=== PATIENT | female | born 1990 | race American Indian/Alaskan Native ===

== ENCOUNTER 2016-09-13 15:45 | Emergency (ER) | payer MEDICAID ==
--- NOTE | 2016-09-13 17:30 | Emergency Department Report ---
Chief Complaint: Abdominal Pain Stated Complaint: ABD/LOWER BACK PAIN Time Seen by Provider: 09/13/16 17:25 - HPI History of Present Illness: Patient is a 26-year-old female presents to ED complaining of lower mid pelvic pain and lower back pain 2 weeks. Patient's issues as low pelvic cramping for the past 2 weeks for by lower back abdominal pain patient describes pain as throbbing in nature and rates the pain about a 9 out of 10 intensity patient also states it is ago she noticed whitish cloudy vaginal discharge with a mild odor but no vaginal bleeding. Patient denies fevers/chills/vomiting/dysuria/chest pains or shortness of breath. - ROS Review of Systems: As noted in HPI - Exam Vital Signs: Vital Signs 09/13/16 16:38 Temperature 98.5 F Pulse Rate 75 Blood Pressure 125/74 O2 Sat by Pulse 99 Oximetry Physical Exam: GENERAL: Alert and oriented x3, no apparent distress, Normal Gait, atraumatic. HEAD: Head is normocephalic and a-traumatic. EYES: Extra ocular muscles are intact. Pupils are equal, round, and reactive to light and accommodation. NECK: Supple. Non edematous, No carotid bruits. No lymphadenopathy or thyromegaly. LUNGS: Symetrical with respiration, No wheezing, no rales or crackles, CTAB. HEART: S1, S2 present, regular rate and rhythm without murmur, no rubs, no gallops. ABDOMEN: No organomegaly was noted,Positive bowel sounds, soft, and non- distended. . Nontender to palpation on all Quadrants, NO CVA tenderness. Mild tenderness to mid pelvis region. SKIN: Warm and dry, No lesions, No ulceration or induration present. MSE screening note: Focused history and physical exam performed. Due to findings the following was ordered: ED Medical Decision Making - Medical Decision Making Urinalyses and test ordered. Vital signs stable patient is in no acute or respiratory distress. Patient condition is seen over at [facility]. ED Disposition for MSE Condition: Stable Instructions: Abdominal Pain (ED)
[2016-09-13 18:37] LABS: Bacteria,Urine 1+ /HPF (Negative); Bilirubin,Urine NEG (Negative); Blood,Urine NEG (Negative); Ketones,Urine NEG (Negative); Leukocyte Esterase,Urine SM (Negative); Mucus,Urine 1+ /HPF; Nitrite,Urine NEG (Negative); Protein,Urine <15 mg/dL mg/dL (Negative); Urobilinogen,Urine < 2.0 mg/dL (<2.0)
--- NOTE | 2016-09-13 23:45 | Emergency Department Report ---
ED Female HPI - General Chief complaint: Abdominal Pain Stated complaint: ABD/LOWER BACK PAIN Time Seen by Provider: 09/13/16 22:49 Source: patient Mode of arrival: Ambulatory Limitations: No Limitations - History of Present Illness Initial comments: 26 y/o female complain of white discharge with foul odor noted MD Complaint: vaginal discharge, dysuria Onset/Timin -: week(s) Radiation: other (low back ) Severity: mild Severity scale (0 -10): 5 Quality: aching Consistency: constant Improves with: none Worsens with: none Associated Symptoms: abdominal pain - Related Data Sexually active: Yes Previous Rx's Medication Instructions Recorded Last Taken Type Omeprazole [PriLOSEC] 20 mg PO BID #40 cap 05/10/13 05/19/13 Rx Sulfamethoxazole/Trimethoprim 1 each PO BID #20 tablet 05/10/13 05/19/13 Rx [Bactrim DS] Promethazine [Phenergan] 1 tab PO Q6H PRN #20 tablet 05/21/13 Unknown Rx Ibuprofen [Motrin] 800 mg PO Q8HR PRN #15 tablet 09/13/16 Unknown Rx metroNIDAZOLE [Flagyl] 500 mg PO Q12HR #14 tab 09/13/16 Unknown Rx Allergies Allergy/AdvReac Type Severity Reaction Status Date / Time strawberry [[place]] Allergy Itching Verified 05/21/13 00:00 ED Review of Systems ROS: Stated complaint: ABD/LOWER BACK PAIN Other details as noted in HPI Constitutional: denies: chills, fever Eyes: denies: eye pain, eye discharge, vision change ENT: denies: ear pain, throat pain Respiratory: denies: cough, shortness of breath, wheezing Cardiovascular: denies: chest pain, palpitations Endocrine: no symptoms reported Gastrointestinal: denies: abdominal pain, nausea, diarrhea Genitourinary: discharge. denies: urgency, dysuria Musculoskeletal: denies: back pain, joint swelling, arthralgia Skin: denies: rash, lesions Neurological: denies: headache, weakness, paresthesias Psychiatric: denies: anxiety, depression Hematological/Lymphatic: denies: easy bleeding, easy bruising ED Past Medical Hx - Past Medical History Hx Asthma: No Additional medical history: reflus - Surgical History Additional Surgical History: facial surgery/childhood - Social History Smoking Status: Unknown if ever smoked - Medications Home Medications: Home Medications Medication Instructions Recorded Confirmed Last Taken Type Omeprazole [PriLOSEC] 20 mg PO BID #40 cap 05/10/13 05/19/13 Rx Sulfamethoxazole/Trimethoprim 1 each PO BID #20 tablet 05/10/13 05/19/13 Rx [Bactrim DS] Promethazine [Phenergan] 1 tab PO Q6H PRN #20 tablet 05/21/13 Unknown Rx Ibuprofen [Motrin] 800 mg PO Q8HR PRN #15 tablet 09/13/16 Unknown Rx metroNIDAZOLE [Flagyl] 500 mg PO Q12HR #14 tab 09/13/16 Unknown Rx ED Physical Exam - General Limitations: No Limitations General appearance: alert, in no apparent distress - Head Head exam: Present: atraumatic, normocephalic - Eye Eye exam: Present: normal appearance - ENT ENT exam: Present: mucous membranes moist - Neck Neck exam: Present: normal inspection - Respiratory Respiratory exam: Present: normal lung sounds bilaterally. Absent: respiratory distress - Cardiovascular Cardiovascular Exam: Present: regular rate, normal rhythm. Absent: systolic murmur, diastolic murmur, rubs, gallop - GI/Abdominal GI/Abdominal exam: Present: soft, normal bowel sounds - External exam: Present: normal external exam Speculum exam: Present: vaginal discharge, cervical discharge, other (foul fishy odor) Bi-manual exam: Present: normal bi-manual exam - Extremities Exam Extremities exam: Present: normal inspection - Back Exam Back exam: Present: normal inspection - Neurological Exam Neurological exam: Present: alert, oriented X3 - Psychiatric Psychiatric exam: Present: normal affect, normal mood - Skin Skin exam: Present: warm, dry, intact, normal color. Absent: rash ED Course Vital Signs 09/13/16 09/13/16 16:38 21:32 Temperature 98.5 F Pulse Rate 75 Respiratory 20 Rate Blood Pressure 125/74 O2 Sat by Pulse 99 99 Oximetry ED Medical Decision Making - Medical Decision Making Bacterial vaginosis per exam empiric treatment Critical care attestation.: If time is entered above; I have spent that time in minutes in the direct care of this critically ill patient, excluding procedure time. ED Disposition Clinical Impression: Bacterial vaginosis Disposition: DISCHARGED TO HOME OR SELFCARE Is pt being admited?: No Does the pt Need Aspirin: No Condition: Stable Instructions: Abdominal Pain (ED), Bacterial Vaginosis (ED) Prescriptions: metroNIDAZOLE [Flagyl] 500 mg PO Q12HR #14 tab Ibuprofen [Motrin] 800 mg PO Q8HR PRN #15 tablet PRN Reason: Pain Referrals: PRIMARY CARE, [Primary Care Provider] - 3-5 Days [facility] [Outside] - 3-5 Days Forms: STI Treatment and Prevention, Work/School Release Form(ED) Time of Disposition: 23:57
[2016-09-13] MEDS ORDERED: TORADOL IM ONE (23:51)
[2016-09-14 00:02] VITALS: BP 128/72
== END 2016-09-14 00:19 | disposition home or self-care (01) ==
LOC: ED 15:45
DX: N76.0 Acute vaginitis (principal); B96.89 Other specified bacterial agents as the cause of diseases classified elsewhere; Z91.018 Allergy to other foods
CPT/HCPCS: 36415; 81001; 81025; 84703; 87210; 87591; 96372; 99284; J1885

== ENCOUNTER 2017-04-15 19:57 | Emergency (ER) | payer MEDICAID, OTHER ==
[2017-04-15] MEDS ORDERED: TYLENOL PO ONE (20:26)
[2017-04-15] MEDS ORDERED: TYLENOL ONE (20:31)
[2017-04-15 21:04] LABS: Basophils % (Auto) 0.5 % (0.0-1.8); Eosinophils % (Auto) 0.1 % (0.0-4.3); Hematocrit 39.4 % (30.3-42.9); Hemoglobin 12.7 gm/dl (10.1-14.3); Mean Corpuscular HGB Conc 32 % (30-34); Mean Corpuscular Hemoglobin 27 pg (28-32); Mean Corpuscular Volume 83 fl (79-97); Platelet Count 301 K/mm3 (140-440); Red Blood Count 4.73 M/mm3 (3.65-5.03); Red Cell Distribution Width 13.4 % (13.2-15.2); White Blood Count 9.7 K/mm3 (4.5-11.0)
[2017-04-15 21:10] LABS: Alanine Aminotransferase 16 units/L (7-56); Albumin 4.2 g/dL (3.9-5); Alkaline Phosphatase 73 units/L (35-129); Anion Gap 19 mmol/L; BUN/Creatinine Ratio 15.71; Blood Urea Nitrogen 11 mg/dL (7-17); Calcium 9.2 mg/dL (8.4-10.2); Carbon Dioxide 24 mmol/L (22-30); Chloride 97.4 mmol/L (98-107); Glucose 122 mg/dL (65-100); Potassium 3.9 mmol/L (3.6-5.0); Sodium 136 mmol/L (137-145); Total Protein 8.3 g/dL (6.3-8.2)
[2017-04-15 21:46] LABS: Bacteria,Urine 1+ /HPF (Negative); Bilirubin,Urine NEG (Negative); Blood,Urine LG (Negative); Ketones,Urine NEG (Negative); Leukocyte Esterase,Urine TR (Negative); Mucus,Urine FEW /HPF; Nitrite,Urine NEG (Negative); Protein,Urine <15 mg/dL mg/dL (Negative)
[2017-04-16] MEDS ORDERED: NACL 0.9% 1000 ML 1,000 ML IV ONE (01:54)
[2017-04-16] MEDS ORDERED: TORADOL IV ONE (01:54)
[2017-04-16] MEDS ORDERED: ZOFRAN IV ONE (01:54)
[2017-04-16] MEDS ORDERED: MORPHINE IV ONE (01:54)
[2017-04-16] MEDS ORDERED: NACL ONE (02:18)
--- NOTE | 2017-04-16 03:02 | Emergency Department Report ---
ED Abdominal Pain HPI - General Chief Complaint: Abdominal Pain Stated Complaint: FLANK PAIN Time Seen by Provider: 04/16/17 01:44 Source: patient Mode of arrival: Ambulatory Limitations: No Limitations - History of Present Illness Initial Comments: 27-year-old female with a past medical history of recurrent pyelonephritis and GERD presents to the hospital with continued bilateral flank pain and vomiting after Levaquin intake. The last 2 months patient has had 3 visits approximately every 2 weeks to her primary care doctor. Patient has been repeatedly diagnose upon nephritis and has tried different antibiotics unsuccessfully. She states she has culture results as well. Patient had a positive UTI test yesterday and was started on Levaquin. Patient took 1 dose yesterday and 1 dose today and vomited each time. No further vomiting episodes reported. Patient able to tolerate water. Potassium is decreased and patient has not eaten since yesterday. She continues to have bilateral flank pain and abdominal pain. No reports of fever or patient states she has chronic intermittent frequency and dysuria started today. She is currently on her menstrual cycle. Severity scale (0 -10): 8 - Related Data Previous Rx's Medication Instructions Recorded Last Taken Type Omeprazole [PriLOSEC] 20 mg PO BID #40 cap 05/10/13 05/19/13 Rx Sulfamethoxazole/Trimethoprim 1 each PO BID #20 tablet 05/10/13 05/19/13 Rx [Bactrim DS] Promethazine [Phenergan] 1 tab PO Q6H PRN #20 tablet 05/21/13 Unknown Rx Ibuprofen [Motrin] 800 mg PO Q8HR PRN #15 tablet 09/13/16 Unknown Rx metroNIDAZOLE [Flagyl] 500 mg PO Q12HR #14 tab 09/13/16 Unknown Rx Ibuprofen [Motrin] 800 mg PO Q8HR PRN #30 tablet 04/16/17 Unknown Rx Nitrofurantoin Waldo/M-Cryst 100 mg PO Q12HR #14 capsule 04/16/17 Unknown Rx [Macrobid CAP] Ondansetron [Zofran Odt] 4 mg PO Q8HR PRN #20 tab.rapdis 04/16/17 Unknown Rx traMADol [Ultram 50 MG tab] 50 mg PO Q6HR PRN #20 tablet 04/16/17 Unknown Rx Allergies Allergy/AdvReac Type Severity Reaction Status Date / Time strawberry [[place]] Allergy Itching Verified 05/21/13 00:00 ED Review of Systems ROS: Stated complaint: FLANK PAIN Other details as noted in HPI Comment: All other systems reviewed and negative Other: Constitutional: No fevers chills Eyes: No eye pain visual changes ENT: No ear pain or throat pain Neck: Denies pain Respiratory: Denies cough wheezing shortness of breath Cardiovascular: Denies chest pain, palpitations, syncope GI: As per HPI : As per HPI Musculoskeletal: As per HPI Skin: Denies rash, lesions, erythema Neurologic: Denies headache, numbness, weakness Psychiatric: Denies suicidal ideation, hallucinations ED Past Medical Hx - Past Medical History Previous Medical History?: Yes Hx Renal Disease: Yes (POLYNEPHRITIS) Hx Asthma: No Additional medical history: reflus - Surgical History Past Surgical History?: Yes Additional Surgical History: facial surgery/childhood - Social History Smoking Status: Current Every Day Smoker Substance Use Type: Alcohol - Medications Home Medications: Home Medications Medication Instructions Recorded Confirmed Last Taken Type Omeprazole [PriLOSEC] 20 mg PO BID #40 cap 05/10/13 05/19/13 Rx Sulfamethoxazole/Trimethoprim 1 each PO BID #20 tablet 05/10/13 05/19/13 Rx [Bactrim DS] Promethazine [Phenergan] 1 tab PO Q6H PRN #20 tablet 05/21/13 Unknown Rx Ibuprofen [Motrin] 800 mg PO Q8HR PRN #15 tablet 09/13/16 Unknown Rx metroNIDAZOLE [Flagyl] 500 mg PO Q12HR #14 tab 09/13/16 Unknown Rx Ibuprofen [Motrin] 800 mg PO Q8HR PRN #30 tablet 04/16/17 Unknown Rx Nitrofurantoin Waldo/M-Cryst 100 mg PO Q12HR #14 capsule 04/16/17 Unknown Rx [Macrobid CAP] Ondansetron [Zofran Odt] 4 mg PO Q8HR PRN #20 tab.rapdis 04/16/17 Unknown Rx traMADol [Ultram 50 MG tab] 50 mg PO Q6HR PRN #20 tablet 04/16/17 Unknown Rx ED Physical Exam - General Limitations: No Limitations - Other Other exam information: General: No limitations, patient is alert in no acute distress Head exam: Atraumatic, normocephalic Eyes exam: Normal appearance, pupils equal reactive to light, extraocular movements intact ENT: Moist mucous membrane, normal oropharynx Neck exam: Normal inspection, full range of motion, no meningismus nontender Respiratory exam: Clear to auscultation bilateral, no wheezes, rales, crackles Cardiovascular: Normal rate and rhythm, normal heart sounds Abdomen: Soft, nondistended, generalized abdominal tenderness, with normal bowel sounds, no rebound, or guarding Extremity: Full range of motion normal inspection no deformity Back: Normal Inspection, full range of motion, bilateral CVA tenderness Neurologic: Alert, oriented x3, cranial nerves intact, no motor or sensory deficit Psychiatric: normal affect, normal mood Skin: Warm, dry, intact ED Course Vital Signs 04/15/17 04/15/17 04/16/17 20:20 21:28 02:51 Temperature 98.8 F Pulse Rate 78 Respiratory 20 18 18 Rate Blood Pressure 134/91 Blood Pressure [Left] O2 Sat by Pulse 100 100 Oximetry 04/16/17 04/16/17 03:08 03:10 Temperature Pulse Rate 71 Respiratory 18 14 Rate Blood Pressure Blood Pressure 126/66 [Left] O2 Sat by Pulse 99 Oximetry - Reevaluation(s) Reevaluation #1: 04/16/17 03:01 Patient medicated with IV fluids, nausea medication and pain medication. CT pending ED Medical Decision Making - Lab Data Result diagrams: 04/15/17 20:32 04/15/17 20:32 Lab Results 04/15/17 04/15/17 04/15/17 Range/Units 20:32 20:32 20:32 WBC 9.7 (4.5-11.0) K/mm3 RBC 4.73 (3.65-5.03) M/mm3 Hgb 12.7 (10.1-14.3) gm/dl Hct 39.4 (30.3-42.9) % MCV 83 (79-97) fl MCH 27 L (28-32) pg MCHC 32 (30-34) % RDW 13.4 (13.2-15.2) % Plt Count 301 (140-440) K/mm3 Lymph % (Auto) 15.3 (13.4-35.0) % Waldo % (Auto) 6.8 (0.0-7.3) % Eos % (Auto) 0.1 (0.0-4.3) % Baso % (Auto) 0.5 (0.0-1.8) % Lymph # 1.5 (1.2-5.4) K/mm3 Waldo # 0.7 (0.0-0.8) K/mm3 Eos # 0.0 (0.0-0.4) K/mm3 Baso # 0.0 (0.0-0.1) K/mm3 Seg Neutrophils % 77.3 H (40.0-70.0) % Seg Neutrophils # 7.5 (1.8-7.7) K/mm3 Sodium 136 L (137-145) mmol/L Potassium 3.9 (3.6-5.0) mmol/L Chloride 97.4 L (98-107) mmol/L Carbon Dioxide 24 (22-30) mmol/L Anion Gap 19 mmol/L BUN 11 (7-17) mg/dL Creatinine 0.7 (0.7-1.2) mg/dL Estimated GFR > 60 ml/min BUN/Creatinine Ratio 15.71 % Glucose 122 H (65-100) mg/dL Calcium 9.2 (8.4-10.2) mg/dL Total Bilirubin 0.30 (0.1-1.2) mg/dL AST 18 (5-40) units/L ALT 16 (7-56) units/L Alkaline Phosphatase 73 (35-129) units/L Total Protein 8.3 H (6.3-8.2) g/dL Albumin 4.2 (3.9-5) g/dL Albumin/Globulin Ratio 1.0 % HCG, Qual Negative (Negative) Urine Color (Yellow) Urine Turbidity (Clear) Urine pH (5.0-7.0) Ur Specific Liberty (1.003-1.030) Urine Protein (Negative) mg/dL Urine Glucose (UA) (Negative) mg/dL Urine Ketones (Negative) mg/dL Urine Blood (Negative) Urine Nitrite (Negative) Urine Bilirubin (Negative) Urine Urobilinogen (<2.0) mg/dL Ur Leukocyte Esterase (Negative) Urine WBC (Auto) (0.0-6.0) /HPF Urine RBC (Auto) (0.0-6.0) /HPF U Epithel Cells (Auto) (0-13.0) /HPF Urine Bacteria (Auto) (Negative) /HPF Urine Mucus /HPF 04/15/17 Range/Units 21:20 WBC (4.5-11.0) K/mm3 RBC (3.65-5.03) M/mm3 Hgb (10.1-14.3) gm/dl Hct (30.3-42.9) % MCV (79-97) fl MCH (28-32) pg MCHC (30-34) % RDW (13.2-15.2) % Plt Count (140-440) K/mm3 Lymph % (Auto) (13.4-35.0) % Waldo % (Auto) (0.0-7.3) % Eos % (Auto) (0.0-4.3) % Baso % (Auto) (0.0-1.8) % Lymph # (1.2-5.4) K/mm3 Waldo # (0.0-0.8) K/mm3 Eos # (0.0-0.4) K/mm3 Baso # (0.0-0.1) K/mm3 Seg Neutrophils % (40.0-70.0) % Seg Neutrophils # (1.8-7.7) K/mm3 Sodium (137-145) mmol/L Potassium (3.6-5.0) mmol/L Chloride (98-107) mmol/L Carbon Dioxide (22-30) mmol/L Anion Gap mmol/L BUN (7-17) mg/dL Creatinine (0.7-1.2) mg/dL Estimated GFR ml/min BUN/Creatinine Ratio % Glucose (65-100) mg/dL Calcium (8.4-10.2) mg/dL Total Bilirubin (0.1-1.2) mg/dL AST (5-40) units/L ALT (7-56) units/L Alkaline Phosphatase (35-129) units/L Total Protein (6.3-8.2) g/dL Albumin (3.9-5) g/dL Albumin/Globulin Ratio % HCG, Qual (Negative) Urine Color Yellow (Yellow) Urine Turbidity Clear (Clear) Urine pH 7.0 (5.0-7.0) Ur Specific Liberty 1.014 (1.003-1.030) Urine Protein <15 mg/dl (Negative) mg/dL Urine Glucose (UA) Neg (Negative) mg/dL Urine Ketones Neg (Negative) mg/dL Urine Blood Lg (Negative) Urine Nitrite Neg (Negative) Urine Bilirubin Neg (Negative) Urine Urobilinogen 2.0 (<2.0) mg/dL Ur Leukocyte Esterase Tr (Negative) Urine WBC (Auto) 3.0 (0.0-6.0) /HPF Urine RBC (Auto) 127.0 (0.0-6.0) /HPF U Epithel Cells (Auto) 2.0 (0-13.0) /HPF Urine Bacteria (Auto) 1+ (Negative) /HPF Urine Mucus Few /HPF - Radiology Data Radiology results: report reviewed CT abdomen and pelvis IV contrast only: Irregularity of the left kidney suggesting scarring from prior pyelonephritis. No specific evidence of acute pyelonephritis. Right kidney is unremarkable. IUD in the uterus. Exophytic mass arising from the left side of the uterus measuring 9.3 x 5.2 cm. This could be a subserosal fibroid. Possibility of a left ovarian tumor is not excluded. Ultrasound MRI may be helpful. No ascites, free air, abscesses, or adenopathy. transvaginal/pelvic ultrasound: Complex uterine mass arising from the left side of uterine body measuring 8.4 x 6.6 x 5.6 cm. Most likely a subserosal uterine fibroid. Left ovary is not seen - Medical Decision Making I informed patient that ED workup was unremarkable other than finding a uterine fibroid which patient allergy is aware of. Any signs of acute UTI at this time. Patient's hematuria likely secondary to menses. She states her urine was positive for infection yesterday but she cannot tolerate the Levaquin. I informed her I would prescribe Macrobid and to call her primary care doctor's office to verify that her urine results were positive and she needs to take the medication. No CT evidence of acute pyelonephritis. Medications will be prescribed for pain and nausea. She will be provided a copy of her results to take to her M.D. - Differential Diagnosis appendicitis, diverticulitis, UTI, renal colic, PID, cholecystitis Critical Care Time: No Critical care attestation.: If time is entered above; I have spent that time in minutes in the direct care of this critically ill patient, excluding procedure time. ED Disposition Clinical Impression: Bilateral flank pain, Abdominal pain, Uterine fibroid, Onset of menses, History of recurrent UTI (urinary tract infection) Disposition: TO HOME OR SELFCARE Is pt being admited?: No Does the pt Need Aspirin: No Condition: Stable Instructions: Abdominal Pain (ED), Flank Pain (ED), Uterine Fibroids (ED) Additional Instructions: Take the medications as prescribed. Return if symptoms worsen. Follow-up with your doctor. Call the doctor's office to determine if they want to continue antibiotics since our results did not show significant infection. You have been prescribed Macrobid since you cannot tolerate the Levaquin. Take a copy of the results to your for further evaluation Prescriptions: Ibuprofen [Motrin] 800 mg PO Q8HR PRN #30 tablet PRN Reason: Pain Nitrofurantoin Waldo/M-Cryst [Macrobid CAP] 100 mg PO Q12HR #14 capsule Ondansetron [Zofran Odt] 4 mg PO Q8HR PRN #20 tab.rapdis PRN Reason: Nausea And Vomiting traMADol [Ultram 50 MG tab] 50 mg PO Q6HR PRN #20 tablet PRN Reason: Pain Referrals: ARGELIA CALDERA III, [facility] [Primary Care Provider] - 3-5 Days Time of Disposition: 06:27
--- NOTE | 2017-04-16 03:53 | Cat Scan Report ---
FINAL REPORT PROCEDURE: CT ABDOMEN PELVIS W CON TECHNIQUE: Computerized axial tomography of the abdomen and pelvis was performed after the IV injection of iodinated nonionic contrast. HISTORY: recent pyelo, b/l flank pain, diffuse abd pain PYLEO PREV RT KIDNEY COMPARISON: No prior studies are available for comparison. FINDINGS: Visualized lower thorax: No significant abnormality. Liver: Normal size and attenuation. Spleen: Normal size and attenuation. Gallbladder and biliary system: Normal. Pancreas: Normal. Adrenals: Normal. Kidneys: There is irregularity of the left kidney suggesting scarring from prior pyelonephritis. There is no specific evidence of acute pyelonephritis. The right kidney is unremarkable.. GI tract: There is no bowel obstruction, colitis or enteritis. The appendix is normal.. Lymph nodes and mesentery: Normal. Vasculature: Normal. Bladder: Normal. Reproductive organs: There is an IUD in the uterus. There is an exophytic mass arising from the left side of the uterus measuring 9.3 x 5.2 centimeters. This could be a sub serosal fibroid. Possibility of left ovarian tumor not excluded. Ultrasound or MRI may be helpful.. Peritoneum: There is no ascites, free air, abscess or adenopathy.. Musculoskeletal structures: No significant abnormality. Other: None. IMPRESSION: There is irregularity of the left kidney suggesting scarring from prior pyelonephritis. There is no specific evidence of acute pyelonephritis. The right kidney is unremarkable.. There is no bowel obstruction, colitis or enteritis. The appendix is normal.. There is an IUD in the uterus. There is an exophytic mass arising from the left side of the uterus measuring 9.3 x 5.2 centimeters. This could be a sub serosal fibroid. Possibility of left ovarian tumor not excluded. Ultrasound or MRI may be helpful.. There is no ascites, free air, abscess or adenopathy..
--- NOTE | 2017-04-16 06:03 | Ultrasound Report ---
FINAL REPORT PROCEDURE: US TRANSVAGINAL TECHNIQUE: Real-time transvaginal sonography in multiple planes of the pelvis was performed with image documentation. This examination was performed without Doppler. Vascular abnormalities, including ovarian torsion, will not be detectable without Doppler evaluation. CPT 18454 HISTORY: abd pain , left exophytic mass COMPARISON: 04/16/2017 FINDINGS: UTERUS Size: 9.9 x 5.2 x 9.7 cm. Endometrial thickness: 9.3 mm. There is an IUD. Orientation: anteverted. Cervix: Normal. Fibroids/masses: There is a complex uterine mass arising from the left side of the uterine body measuring 8.4 x 6.6 x 5.6 centimeters.. RIGHT Ovary: 2.1 x 1.5 x 1.8 cm. Appearance: Normal. LEFT Ovary: Not seen. Pelvic fluid: None. Other: None. IMPRESSION: There is a complex uterine mass arising from the left side of the uterine body measuring 8.4 x 6.6 x 5.6 centimeters.. This is most likely a sub serosal uterine fibroid. The left ovary is not seen..
--- NOTE | 2017-04-16 06:05 | Ultrasound Report ---
FINAL REPORT PROCEDURE: US PELVIC COMPLETE TECHNIQUE: Real-time transabdominal sonography in multiple planes of the pelvis was performed with image documentation. This examination was performed without Doppler. Vascular abnormalities, including ovarian torsion, will not be detectable without Doppler evaluation. HISTORY: abd pain , left exophytic mass COMPARISON: 04/16/2017 FINDINGS: UTERUS Size: 9.9 x 5.2 x 9.7 cm. Endometrial thickness: 9.3 mm. There is an IUD. Orientation: anteverted. Cervix: Normal. Fibroids/masses: There is a complex uterine mass arising from the left side of the uterine body measuring 8.4 x 6.6 x 5.6 centimeters.. RIGHT Ovary: 2.1 x 1.5 x 1.8 cm. Appearance: Normal. LEFT Ovary: Not seen. Pelvic fluid: None. Other: None. IMPRESSION: There is a complex uterine mass arising from the left side of the uterine body measuring 8.4 x 6.6 x 5.6 centimeters.. This is most likely a sub serosal uterine fibroid. The left ovary is not seen..
[2017-04-16 06:48] VITALS: BP 116/71
== END 2017-04-16 06:57 | disposition home or self-care (01) ==
LOC: ED 19:57
DX: D25.9 Leiomyoma of uterus, unspecified (principal); R10.9 Unspecified abdominal pain; F17.200 Nicotine dependence, unspecified, uncomplicated; Z91.018 Allergy to other foods
CPT/HCPCS: 36415; 74177; 76830; 76856; 80053; 81001; 84703; 85025; 96361; 96374; 96375; 99284; J1885; J2270; J2405; J7030; Q9967

== ENCOUNTER 2017-09-15 10:24 | Emergency (ER) | payer OTHER ==
[2017-09-15 12:24] LABS: Bacteria,Urine 1+ /HPF (Negative); Bilirubin,Urine NEG (Negative); Blood,Urine NEG (Negative); Color,Urine Yellow (Yellow); Mucus,Urine FEW /HPF; Nitrite,Urine NEG (Negative); Protein,Urine <15 mg/dL mg/dL (Negative); Urobilinogen,Urine < 2.0 mg/dL (<2.0)
[2017-09-15 12:26] LABS: HCG Qualitative,Urine Negative (Negative)
--- NOTE | 2017-09-15 15:31 | Emergency Department Report ---
ED Female HPI - General Chief complaint: Urogenital-Female Stated complaint: UTI Time Seen by Provider: 09/15/17 15:30 Source: patient Mode of arrival: Ambulatory Limitations: No Limitations - History of Present Illness Initial comments: Patient reports that she is here for possibly UTI. She says she is having pain to both her flank. She says she has urinary burning and frequency. Denies any blood in her urine. Denies any nausea or vomiting. Denies any fever or chills. Patient says she has recurrent urinary tract infection. She said the last time she had a urinary tract infection was 03/27/2017 and this is documented in her record. She was also hospitalized previously for pyelonephritis. She denies any history of kidney stones. Pain is 4 out of 10. No [id number] medication taken. MD Complaint: dysuria Onset/Timin -: days(s) Location: other (back and flank) Radiation: non-radiating Severity: mild Severity scale (0 -10): 4 Quality: sharp, aching Worsens with: urination Are you Now?: No Associated Symptoms: dysuria. denies: vaginal discharge, vaginal bleeding, abdominal pain, nausea/vomiting, fever/chills, headaches, loss of appetite, hematuria, rash, seizure, shortness of breath, syncope, weakness - Related Data Sexually active: Yes Previous Rx's Medication Instructions Recorded Last Taken Type Omeprazole [PriLOSEC] 20 mg PO BID #40 cap 05/10/13 05/19/13 Rx Sulfamethoxazole/Trimethoprim 1 each PO BID #20 tablet 05/10/13 05/19/13 Rx [Bactrim DS] Promethazine [Phenergan] 1 tab PO Q6H PRN #20 tablet 05/21/13 Unknown Rx metroNIDAZOLE [Flagyl] 500 mg PO Q12HR #14 tab 09/13/16 Unknown Rx Ibuprofen [Motrin] 800 mg PO Q8HR PRN #30 tablet 04/16/17 Unknown Rx Nitrofurantoin [place]/M-Cryst 100 mg PO Q12HR #14 capsule 04/16/17 Unknown Rx [Macrobid CAP] Ondansetron [Zofran Odt] 4 mg PO Q8HR PRN #20 tab.rapdis 04/16/17 Unknown Rx traMADol [Ultram 50 MG tab] 50 mg PO Q6HR PRN #20 tablet 04/16/17 Unknown Rx Ibuprofen [Motrin 800 MG tab] 800 mg PO Q8HR PRN #12 tablet 09/15/17 Unknown Rx Levofloxacin [Levaquin] 750 mg PO QDAY 7 Days #7 tablet 09/15/17 Unknown Rx Allergies Allergy/AdvReac Type Severity Reaction Status Date / Time strawberry [[place]] Allergy Itching Verified 05/21/13 00:00 ED Review of Systems ROS: Stated complaint: UTI Other details as noted in HPI Comment: All other systems reviewed and negative Constitutional: no symptoms reported Respiratory: no symptoms reported Cardiovascular: denies: chest pain, palpitations, dyspnea on exertion, edema, syncope, paroxysmal nocturnal dyspnea Gastrointestinal: denies: abdominal pain, nausea, vomiting, diarrhea, constipation, hematemesis, melena, hematochezia Genitourinary: dysuria, frequency. denies: urgency, hematuria, discharge Musculoskeletal: back pain. denies: joint swelling, arthralgia, myalgia Skin: denies: rash Neurological: denies: headache ED Past Medical Hx - Past Medical History Previous Medical History?: Yes Hx Renal Disease: Yes (POLYNEPHRITIS) Hx Asthma: No Additional medical history: reflus, Frequent UTI - Surgical History Past Surgical History?: Yes Additional Surgical History: facial surgery/childhood - Family History Family history: hypertension - Social History Smoking Status: Current Every Day Smoker Substance Use Type: Alcohol, Marijuana, Prescribed - Medications Home Medications: Home Medications Medication Instructions Recorded Confirmed Last Taken Type Omeprazole [PriLOSEC] 20 mg PO BID #40 cap 05/10/13 05/19/13 Rx Sulfamethoxazole/Trimethoprim 1 each PO BID #20 tablet 05/10/13 05/19/13 Rx [Bactrim DS] Promethazine [Phenergan] 1 tab PO Q6H PRN #20 tablet 05/21/13 Unknown Rx metroNIDAZOLE [Flagyl] 500 mg PO Q12HR #14 tab 09/13/16 Unknown Rx Ibuprofen [Motrin] 800 mg PO Q8HR PRN #30 tablet 04/16/17 Unknown Rx Nitrofurantoin [place]/M-Cryst 100 mg PO Q12HR #14 capsule 04/16/17 Unknown Rx [Macrobid CAP] Ondansetron [Zofran Odt] 4 mg PO Q8HR PRN #20 tab.rapdis 04/16/17 Unknown Rx traMADol [Ultram 50 MG tab] 50 mg PO Q6HR PRN #20 tablet 04/16/17 Unknown Rx Ibuprofen [Motrin 800 MG tab] 800 mg PO Q8HR PRN #12 tablet 09/15/17 Unknown Rx Levofloxacin [Levaquin] 750 mg PO QDAY 7 Days #7 tablet 09/15/17 Unknown Rx ED Physical Exam - General Limitations: No Limitations General appearance: alert, in no apparent distress - Head Head exam: Present: atraumatic, normocephalic, normal inspection - Eye Eye exam: Present: normal appearance, PERRL, EOMI Pupils: Present: normal accommodation - ENT ENT exam: Present: normal exam, normal orophraynx, mucous membranes moist - Neck Neck exam: Present: normal inspection, full ROM. Absent: tenderness, meningismus, lymphadenopathy, thyromegaly - Respiratory Respiratory exam: Present: normal lung sounds bilaterally. Absent: respiratory distress, chest wall tenderness - Cardiovascular Cardiovascular Exam: Present: regular rate, normal rhythm, normal heart sounds. Absent: systolic murmur, diastolic murmur - GI/Abdominal GI/Abdominal exam: Present: soft, normal bowel sounds. Absent: distended, tenderness, guarding, rebound, rigid, organomegaly, mass, bruit, pulsatile mass - Extremities Exam Extremities exam: Present: normal inspection, full ROM, normal capillary refill , other (no no clubbing, cyanosis or edema. +2 pulses to all extremities. No neurovascular compromise). Absent: tenderness, pedal edema, joint swelling, calf tenderness - Back Exam Back exam: Present: normal inspection, full ROM, CVA tenderness (R), CVA tenderness (L), other (ambulates without any difficulties). Absent: tenderness , muscle spasm, paraspinal tenderness, vertebral tenderness, rash noted - Neurological Exam Neurological exam: Present: alert, oriented X3, normal gait, reflexes normal. Absent: motor sensory deficit - Psychiatric Psychiatric exam: Present: normal affect, normal mood - Skin Skin exam: Present: warm, dry, intact, normal color. Absent: rash ED Course Vital Signs 09/15/17 11:27 Temperature 98.3 F Pulse Rate 68 Respiratory 16 Rate Blood Pressure 121/67 O2 Sat by Pulse 100 Oximetry - Reevaluation(s) Reevaluation #1: 09/15/17 15:50 Patient with urinary tract infection and I discussed with her that I will place her on Levaquin due to recurrence of her UTI and she will need to be referred to a urologist. Patient does have a primary care physician but she said her primary care just orders Macrobid and she keeps given urinary tract infection. Patient given Rocephin 1 g IM without any adverse reaction ED Medical Decision Making - Lab Data Lab Results 09/15/17 Range/Units 11:56 Urine Color Yellow (Yellow) Urine Turbidity Clear (Clear) Urine pH 5.0 (5.0-7.0) Ur Specific [place] 1.020 (1.003-1.030) Urine Protein <15 mg/dl (Negative) mg/dL Urine Glucose (UA) Neg (Negative) mg/dL Urine Ketones 20 (Negative) mg/dL Urine Blood Neg (Negative) Urine Nitrite Neg (Negative) Urine Bilirubin Neg (Negative) Urine Urobilinogen < 2.0 (<2.0) mg/dL Ur Leukocyte Esterase Mod (Negative) Urine WBC (Auto) 4.0 (0.0-6.0) /HPF Urine RBC (Auto) 2.0 (0.0-6.0) /HPF U Epithel Cells (Auto) 7.0 (0-13.0) /HPF Urine Bacteria (Auto) 1+ (Negative) /HPF Urine Mucus Few /HPF Urine HCG, Qual Negative (Negative) Urine culture pending - Medical Decision Making ED course: She reports that she has urinary burning and frequency and flank pain with lower back pain and reports that she thinks she has a urinary tract infection because she gets these frequently and last time she got this staple placed her on Macrobid and she is now with another urinary tract infection. Patient does have a primary care physician. She reports that she thinks she is to be referred to a specialist to find out why she keeps getting your urinary tract infections. I discussed the patient that I will place her on Levaquin she was treated with Levaquin in the past when she was in the hospital for pyelonephritis. This has been more than 3 months. The last time she had a bladder infection she was treated with Macrobid which was in March 2017. Patient medical record reflects that she's been here a couple times last year for urinary tract infection. No history of urine culture on the records. Patient is stable, she does not have a fever, abdominal pain, nausea or vomiting. She is able to tolerate oral liquids without any difficulties. Patient given Rocephin 1 g IM in emergency room and discharged from ED with prescription for Levaquin 750 mg 7 days. She voices understanding of discharge instruction and follow-up with primary care and also to follow up with urology as discussed. Critical care attestation.: If time is entered above; I have spent that time in minutes in the direct care of this critically ill patient, excluding procedure time. ED Disposition Clinical Impression: Flank pain, acute, Recurrent urinary tract infection Disposition: TO HOME OR SELFCARE Is pt being admited?: No Does the pt Need Aspirin: No Condition: Stable Instructions: Dysuria (ED), Urinary Tract Infection in Women (ED), Flank Pain ( ED) Additional Instructions: Please increase fluid intake to include 2-3 L of water and/or cranberry juice Follow-up with primary care physician as instructed Please see referral to urologist for recurrent urinary tract infections in discharge instruction paperwork Take antibiotic as prescribed. You can only take Motrin for pain while taking this antibiotic. Prescriptions: Ibuprofen [Motrin 800 MG tab] 800 mg PO Q8HR PRN #12 tablet PRN Reason: Pain Levofloxacin [Levaquin] 750 mg PO QDAY 7 Days #7 tablet Referrals: DR SERGEI [Other] - 09/17/17 [facility] [Provider Group] - 09/17/17 Forms: Work/School Release Form(ED)
[2017-09-15] MEDS ORDERED: XYLOCAINE 1% MPF 5 mL INFILTRATI ONE (16:16)
[2017-09-15] MEDS ORDERED: ROCEPHIN IM STA (16:16)
[2017-09-15 16:28] VITALS: BP 110/66
== END 2017-09-15 16:38 | disposition home or self-care (01) ==
LOC: ED 10:24
DX: N39.0 Urinary tract infection, site not specified (principal); R10.9 Unspecified abdominal pain; F17.200 Nicotine dependence, unspecified, uncomplicated; F12.10 Cannabis abuse, uncomplicated; Z91.018 Allergy to other foods
CPT/HCPCS: 81001; 81025; 87086; 96372; 99283; J0696

== ENCOUNTER 2018-02-20 13:28 | Emergency (ER) | payer SELFPAY ==
[2018-02-20 13:38] VITALS: BP 114/75
--- NOTE | 2018-02-20 14:20 | Emergency Department Report ---
ED Female HPI - General Chief complaint: Urogenital-Female Stated complaint: FREQUENT URGENCY TO URINATE Time Seen by Provider: 02/20/18 14:13 Source: patient Mode of arrival: Ambulatory Limitations: No Limitations - History of Present Illness Initial comments: 27-year-old female past medical history recurrent UTIs presents with complaint of 8 days of persistent dysuria. Patient states that a dizziness ago she was treated for chlamydia infection with azithromycin and ceftriaxone. Was also given a dose of Flagyl by her primary care doctor. Patient states that her symptoms are persisting and she still has dysuria. Patient complains of burning around her urethra. Denies hematuria. Last menstrual period 02/17/18. Patient is awake alert and oriented 3. Denies fevers chills nausea or vomiting. Does state that she has slight left flank pain which has been ongoing for approximately over 1 year. This is not a new symptom as per pt. MD Complaint: dysuria, pelvic pain, possible STD Onset/Timin -: days(s) Time: 08:00 Quality: burning Worsens with: urination Are you Now?: No Last Menstrual Period: 02/07/18 EDC: 11/14/18 Associated Symptoms: vaginal discharge, dysuria - Related Data Sexually active: Yes Previous Rx's Medication Instructions Recorded Last Taken Type Omeprazole [PriLOSEC] 20 mg PO BID #40 cap 05/10/13 05/19/13 Rx Sulfamethoxazole/Trimethoprim 1 each PO BID #20 tablet 05/10/13 05/19/13 Rx [Bactrim DS] Promethazine [Phenergan] 1 tab PO Q6H PRN #20 tablet 05/21/13 Unknown Rx metroNIDAZOLE [Flagyl] 500 mg PO Q12HR #14 tab 09/13/16 Unknown Rx Ibuprofen [Motrin] 800 mg PO Q8HR PRN #30 tablet 04/16/17 Unknown Rx Nitrofurantoin [place]/M-Cryst 100 mg PO Q12HR #14 capsule 04/16/17 Unknown Rx [Macrobid CAP] Ondansetron [Zofran Odt] 4 mg PO Q8HR PRN #20 tab.rapdis 04/16/17 Unknown Rx traMADol [Ultram 50 MG tab] 50 mg PO Q6HR PRN #20 tablet 04/16/17 Unknown Rx Ibuprofen [Motrin 800 MG tab] 800 mg PO Q8HR PRN #12 tablet 09/15/17 Unknown Rx Levofloxacin [Levaquin] 750 mg PO QDAY 7 Days #7 tablet 09/15/17 Unknown Rx Doxycycline [Vibramycin CAP] 100 mg PO Q12HR #28 capsule 02/20/18 Unknown Rx Phenazopyridine [Pyridium] 200 mg PO TID #6 tab 02/20/18 Unknown Rx Allergies Allergy/AdvReac Type Severity Reaction Status Date / Time strawberry [[place]] Allergy Itching Verified 05/21/13 00:00 ED Review of Systems ROS: Stated complaint: FREQUENT URGENCY TO URINATE Other details as noted in HPI Constitutional: denies: chills, fever Eyes: denies: eye pain, eye discharge, vision change ENT: denies: ear pain, throat pain Respiratory: denies: cough, shortness of breath, wheezing Cardiovascular: denies: chest pain, palpitations Endocrine: no symptoms reported Gastrointestinal: denies: abdominal pain, nausea, diarrhea Genitourinary: as per HPI, frequency. denies: urgency, dysuria, discharge Musculoskeletal: denies: back pain, joint swelling, arthralgia Skin: denies: rash, lesions Neurological: denies: headache, weakness, paresthesias Psychiatric: denies: anxiety, depression Hematological/Lymphatic: denies: easy bleeding, easy bruising ED Past Medical Hx - Past Medical History Hx Renal Disease: Yes (POLYNEPHRITIS) Hx Asthma: No Additional medical history: reflus, Frequent UTI - Surgical History Additional Surgical History: facial surgery/childhood - Social History Smoking Status: Current Every Day Smoker Substance Use Type: None - Medications Home Medications: Home Medications Medication Instructions Recorded Confirmed Last Taken Type Omeprazole [PriLOSEC] 20 mg PO BID #40 cap 05/10/13 05/19/13 Rx Sulfamethoxazole/Trimethoprim 1 each PO BID #20 tablet 05/10/13 05/19/13 Rx [Bactrim DS] Promethazine [Phenergan] 1 tab PO Q6H PRN #20 tablet 05/21/13 Unknown Rx metroNIDAZOLE [Flagyl] 500 mg PO Q12HR #14 tab 09/13/16 Unknown Rx Ibuprofen [Motrin] 800 mg PO Q8HR PRN #30 tablet 04/16/17 Unknown Rx Nitrofurantoin [place]/M-Cryst 100 mg PO Q12HR #14 capsule 04/16/17 Unknown Rx [Macrobid CAP] Ondansetron [Zofran Odt] 4 mg PO Q8HR PRN #20 tab.rapdis 04/16/17 Unknown Rx traMADol [Ultram 50 MG tab] 50 mg PO Q6HR PRN #20 tablet 04/16/17 Unknown Rx Ibuprofen [Motrin 800 MG tab] 800 mg PO Q8HR PRN #12 tablet 09/15/17 Unknown Rx Levofloxacin [Levaquin] 750 mg PO QDAY 7 Days #7 tablet 09/15/17 Unknown Rx Doxycycline [Vibramycin CAP] 100 mg PO Q12HR #28 capsule 02/20/18 Unknown Rx Phenazopyridine [Pyridium] 200 mg PO TID #6 tab 02/20/18 Unknown Rx ED Physical Exam - General Limitations: No Limitations General appearance: alert, in no apparent distress - Head Head exam: Present: atraumatic, normocephalic - Eye Eye exam: Present: normal appearance, PERRL, EOMI - ENT ENT exam: Present: mucous membranes moist - Neck Neck exam: Present: normal inspection - Respiratory Respiratory exam: Present: normal lung sounds bilaterally. Absent: respiratory distress - Cardiovascular Cardiovascular Exam: Present: regular rate, normal rhythm. Absent: systolic murmur, diastolic murmur, rubs, gallop - GI/Abdominal GI/Abdominal exam: Present: soft, normal bowel sounds - External exam: Present: normal external exam Speculum exam: Present: vaginal discharge (slight clear vaginal discharge.) Bi-manual exam: Present: cervical motion tendernes (mild CMT on exam no adnexal tenderness on exam bilaterally) - Extremities Exam Extremities exam: Present: normal inspection - Back Exam Back exam: Present: normal inspection, full ROM (patient does not have CVA tenderness on percussion) - Neurological Exam Neurological exam: Present: alert, oriented X3 - Psychiatric Psychiatric exam: Present: normal affect, normal mood - Skin Skin exam: Present: warm, dry, intact, normal color. Absent: rash ED Course Vital Signs 02/20/18 13:34 Temperature 98.5 F Pulse Rate 81 Respiratory 16 Rate Blood Pressure 114/75 O2 Sat by Pulse 99 Oximetry ED Medical Decision Making - Medical Decision Making A/P: Dysuria; Urethritis vs cervicitis vs PID 1-as patient is having persistent symptoms of urethral discomfort and dysuria I offered patient retreatment. I will cover for both chlamydia and gonorrheal infections. Patient did have very mild CMT on pelvic exam. I discussed options with patient for treatment or to follow-up with her [facility]. Patient elects to be retreated at this time. I explained to patient that in order to be more thorough with her management I will treat her empirically for PID as she does have some pelvic discomfort with associated urethritis. Patient empirically treated with ceftriaxone and prescribed 2 week course of doxycycline. I explained to patient that she should avoid direct sunlight while taking doxycycline. Patient stated that she understood my instructions. 2-UC sent, GC cultures sent, urinalysis is unremarkable. Wet prep unremarkable. Patient is not 3-patient given follow-up with primary care/[facility] 4- no flank pain no clinical signs of pyelonephritis on exam. Critical care attestation.: If time is entered above; I have spent that time in minutes in the direct care of this critically ill patient, excluding procedure time. ED Disposition Clinical Impression: Dysuria, Urethritis Disposition: TO HOME OR SELFCARE Is pt being admited?: No Does the pt Need Aspirin: No Condition: Stable Instructions: Dysuria (ED), Pelvic Inflammatory Disease (ED) Prescriptions: Doxycycline [Vibramycin CAP] 100 mg PO Q12HR #28 capsule Phenazopyridine [Pyridium] 200 mg PO TID #6 tab Referrals: [facility] [Provider Group] - 3-5 Days [facility] [Provider Group] - 3-5 Days Forms: STI Treatment and Prevention Time of Disposition: 15:22
[2018-02-20 14:50] LABS: Bilirubin,Urine NEG (Negative); Blood,Urine NEG (Negative); Color,Urine Straw (Yellow); Protein,Urine <15 mg/dL mg/dL (Negative); RBC,Urine < 1.0 /HPF (0.0-6.0); Urobilinogen,Urine < 2.0 mg/dL (<2.0); WBC,Urine < 1.0 /HPF (0.0-6.0)
[2018-02-20 14:53] LABS: HCG Qualitative,Urine Negative (Negative)
[2018-02-20] MEDS ORDERED: ROCEPHIN IM ONE (15:19)
[2018-02-20] MEDS ORDERED: XYLOCAINE 1% MPF 5 mL INFILTRATI ONE (15:19)
[2018-02-20] MEDS ORDERED: VIBRAMYCIN PO ONE (15:19)
[2018-02-20] MEDS ORDERED: MOTRIN PO ONE (15:30)
== END 2018-02-20 15:48 | disposition home or self-care (01) ==
LOC: ED 13:28
DX: N34.2 Other urethritis (principal); F17.200 Nicotine dependence, unspecified, uncomplicated; Z79.899 Other long term (current) drug therapy; Z91.018 Allergy to other foods
CPT/HCPCS: 81001; 81025; 87210; 87591; 96372; 99284; J0696

== ENCOUNTER 2018-06-14 12:41 | Emergency (ER) | payer OTHER ==
[2018-06-14 12:51] VITALS: BP 123/63
[2018-06-14] MEDS ORDERED: NACL 0.9% 1000 ML 1,000 ML IV ONE (13:26)
--- NOTE | 2018-06-14 13:33 | Emergency Department Report ---
HPI - General Chief Complaint: Nausea/Vomiting/Diarrhea Time Seen by Provider: 06/14/18 13:06 - HPI HPI: 28-year-old female presents to the emergency department, taking a [employer] to be seen, with complaints of some chills, left-sided pelvic pain , right-sided low to mid back pain, nausea and vomiting that began going on over the past few days. Patient says that she has a history of chronic low back pains and recurrent urinary tract infections. She recently saw her primary care physician, Dr. Romel Valiente, was placed on Keflex for it. She previously was diagnosed and admitted at [facility] with polynephritis. She has never seen a urologist but says that she has an appointment coming up. She says that she's been having nausea and vomiting and has been unable to keep down her antibiotics. No recent travel or sick contacts at home. ED Past Medical Hx - Past Medical History Previous Medical History?: Yes Hx Renal Disease: Yes (POLYNEPHRITIS) Hx Asthma: No Additional medical history: reflux, Frequent UTI - Surgical History Past Surgical History?: Yes Additional Surgical History: facial surgery/childhood - Social History Smoking Status: Current Every Day Smoker Substance Use Type: None - Medications Home Medications: Home Medications Medication Instructions Recorded Confirmed Last Taken Type Omeprazole [PriLOSEC] 20 mg PO BID #40 cap 05/10/13 05/19/13 Rx Sulfamethoxazole/Trimethoprim 1 each PO BID #20 tablet 05/10/13 05/19/13 Rx [Bactrim DS] Promethazine [Phenergan] 1 tab PO Q6H PRN #20 tablet 05/21/13 Unknown Rx metroNIDAZOLE [Flagyl] 500 mg PO Q12HR #14 tab 09/13/16 Unknown Rx Ibuprofen [Motrin] 800 mg PO Q8HR PRN #30 tablet 04/16/17 Unknown Rx Nitrofurantoin [place]/M-Cryst 100 mg PO Q12HR #14 capsule 04/16/17 Unknown Rx [Macrobid CAP] Ondansetron [Zofran Odt] 4 mg PO Q8HR PRN #20 tab.rapdis 04/16/17 Unknown Rx traMADol [Ultram 50 MG tab] 50 mg PO Q6HR PRN #20 tablet 04/16/17 Unknown Rx Ibuprofen [Motrin 800 MG tab] 800 mg PO Q8HR PRN #12 tablet 09/15/17 Unknown Rx levoFLOXacin [Levaquin] 750 mg PO QDAY 7 Days #7 tablet 09/15/17 Unknown Rx Doxycycline [Vibramycin CAP] 100 mg PO Q12HR #28 capsule 02/20/18 Unknown Rx Phenazopyridine [Pyridium] 200 mg PO TID #6 tab 02/20/18 Unknown Rx Ondansetron [Zofran Odt] 4 mg PO Q8H PRN #10 tab.rapdis 06/14/18 Unknown Rx traMADol [Ultram 50 MG tab] 50 mg PO Q6HR PRN #12 tablet 06/14/18 Unknown Rx ED Review of Systems ROS: Stated complaint: FLU SYMPTOMS Other details as noted in HPI Comment: All other systems reviewed and negative Constitutional: chills. denies: malaise Eyes: denies: eye pain, eye discharge, vision change ENT: denies: ear pain, throat pain Respiratory: denies: cough, shortness of breath, wheezing Cardiovascular: denies: chest pain, palpitations Gastrointestinal: nausea, vomiting Genitourinary: dysuria, other (pelvic pain) Musculoskeletal: back pain. denies: arthralgia Skin: denies: rash, lesions Neurological: denies: headache, weakness Physical Exam - Physical Exam Vital Signs: Vital Signs 06/14/18 12:47 Temperature 99.6 F Pulse Rate 66 Respiratory 18 Rate Blood Pressure 123/63 O2 Sat by Pulse 100 Oximetry Physical Exam: GENERAL: Well nourished. Well developed. HENT: Normocephalic. Atraumatic. Patient has moist mucous membranes. EYES: Extraocular motions are intact. Pupils are equal and reactive bilaterally. NECK: Supple. Trachea is midline. CHEST/LUNGS: Clear to auscultation. There is no respiratory distress noted. HEART/CARDIOVASCULAR: Regular. There is moderate tachycardia. There is no murmur. ABDOMEN: Abdomen is soft. There is some left lower quadrant and upper abdominal tenderness to palpation. No guarding. Patient has normal bowel sounds. There is no abdominal distention. SKIN: Skin is warm and dry. NEURO: Patient is awake, alert and oriented. The patient is cooperative. No focal, motor or sensory deficits. MUSCULOSKELETAL: There is no tenderness or deformity. No restriction to range of motion. There is no evidence of acute injury. BACK: No midline thoracic or lumbar tenderness to palpation, step-off or deformity. There is some reproducible tenderness to palpation to the right paraspinal mid to lower back. ED Course Vital Signs 06/14/18 12:47 Temperature 99.6 F Pulse Rate 66 Respiratory 18 Rate Blood Pressure 123/63 O2 Sat by Pulse 100 Oximetry ED Medical Decision Making - Lab Data Result diagrams: 06/14/18 13:30 06/14/18 13:30 - Radiology Data Radiology results: report reviewed CT ABDOMEN PELVIS WITH CONTRAST: HISTORY: Pelvic pain, abdominal pain, elevated liver function tests. COMPARISON: 04/16/17. TECHNIQUE: Helical CT in 1.25mm intervals following IV contrast. Sagittal and coronal reconstructions. FINDINGS: Lung bases: Normal. Liver: Normal. Biliary system: Normal. Pancreas: Normal. Spleen: Normal. Kidneys/ureters/bladder: The right kidney is normal. Multifocal cortical scarring in the superior left kidney is unchanged. The ureters and bladder are unremarkable. Adrenal glands: Normal. Aorta: Normal. Intestines: Normal. Appendix: Normal. Pelvic viscera: The uterus is enlarged and lobular. There appears to be an approximate 8.8 x 6.5 cm exophytic mass from the left lateral uterine wall. This probably represents a fibroid. This is unchanged since the previous exam. I believe I see the ovaries which are unremarkable. IUD is in place. Ascites: None. Adenopathy: None. Musculoskeletal: Normal. IMPRESSION: Large uterine fibroid, unchanged. Chronic cortical scarring in the left kidney, unchanged. No acute inflammatory process is identified. No significant change since 04/16/17. Transcribed By: [facility] Dictated By: RICHARD BUSTILLOS JR, MD Electronically Authenticated By: RICHARD BUSTILLOS JR, MD Signed Date/Time: 06/14/18 1523 EXAM: US ABDOMEN LIMITED HISTORY: RUQ pain, elevated LFTs TECHNIQUE: Directed sonography of the right upper quadrant. PRIORS: None. FINDINGS: Gallbladder is of normal size and echogenicity without evidence of calculi. Wall thickness within normal limits. Intra-and extrahepatic bile ducts are of normal caliber. Liver has normal homogeneous echogenicity without focal abnormalities. Right kidney measures 9.7 cm in longest dimension and is grossly unremarkable. Visualized pancreatic parenchyma grossly unremarkable. IMPRESSION: 1. No acute findings. Transcribed By: [facility] Dictated By: ANDREW PRITCHARD MD Electronically Authenticated By: ANDREW PRITCHARD MD Signed Date/Time: 06/14/18 7121 - Medical Decision Making Patient presented with the complaint of nausea and vomiting, chills, abdominal pain and some back pains. Patient's labs were mostly unremarkable. She is not . There is no urinary tract infection. A CT scan of the abdomen and pelvis with IV contrast was done that shows a large fibroid to the left lateral uterine wall. This may be part of the patient's abdominal and/or pelvic pain. However it was seen in previous examinations and appears unchanged from that. There is no sign of any nephrolithiasis. An ultrasound was done that did not show any signs of cholelithiasis, cholecystitis or hepatitis. The patient has not had any vomiting while in the emergency department and was able to pass an oral challenge. She has good follow-up with primary care. She has been given a referral for gastroenterology regarding some elevated liver enzymes without any etiology found on imaging. She was given a referral for [facility] [employer] regarding her fibroid uterus. She was sent home with a small amount of pain medication and nausea meds. She will return to the ER with any worsening of her symptoms or any acute distress. - Differential Diagnosis fibroid, cholelithiasis, cholecystitis, nephrolithiasis, pyelonephritis, [place] Critical Care Time: No Critical care attestation.: If time is entered above; I have spent that time in minutes in the direct care of this critically ill patient, excluding procedure time. ED Disposition Clinical Impression: Elevated liver enzymes Abdominal pain Qualifiers: Abdominal location: generalized Qualified Code(s): R10.84 - Generalized abdominal pain Back pain Qualifiers: Back pain location: back pain in unspecified location Chronicity: unspecified Back pain laterality: right Qualified Code(s): M54.9 - Dorsalgia, unspecified Fibroid, uterine Qualifiers: Uterine leiomyoma location: unspecified location Qualified Code(s): D25.9 - Leiomyoma of uterus, unspecified Disposition: DC-01 TO HOME OR SELFCARE Is pt being admited?: No Condition: Stable Instructions: Uterine Fibroids (ED), Abdominal Pain (ED), Back Pain (ED) Additional Instructions: Please follow-up with your primary care physician in the next few days. I am giving you a referral for a local visitor services technician, Dr. Hirsch, to follow up regarding your abdominal pains and your elevated liver enzymes. I will also give you multiple referrals for [facility] groups in the area to follow up regarding your fibroid. Return to the emergency Department with any worsening of your symptoms or any acute distress. You have been prescribed a medication that can be sedating. Therefore this medication should not be mixed with alcohol of any quantity, and cannot be taken prior to driving, working, or being responsible for children. Prescriptions: Ondansetron [Zofran Odt] 4 mg PO Q8H PRN #10 tab.rapdis PRN Reason: Nausea traMADol [Ultram 50 MG tab] 50 mg PO Q6HR PRN #12 tablet PRN Reason: Pain Referrals: PRIMARY [facility] [Primary Care Provider] - 3-5 Days CHELY HIRSCH MD [Staff Physician] - 3-5 Days [facility] [Provider Group] - 3-5 Days [facility] [Provider Group] - 3-5 Days [facility] [Provider Group] - 3-5 Days Forms: Work/School Release Form(ED) Time of Disposition: 17:09
[2018-06-14 13:47] LABS: Basophils # (Auto) 0.1 K/mm3 (0.0-0.1); Basophils % (Auto) 0.6 % (0.0-1.8); Eosinophils # (Auto) 0.4 K/mm3 (0.0-0.4); Eosinophils % (Auto) 3.1 % (0.0-4.3); Hematocrit 39.4 % (30.3-42.9); Hemoglobin 12.7 gm/dl (10.1-14.3); Lymphocytes # (Auto) 1.8 K/mm3 (1.2-5.4); Mean Corpuscular HGB Conc 32 % (30-34); Mean Corpuscular Hemoglobin 28 pg (28-32); Mean Corpuscular Volume 85 fl (79-97); Monocytes % (Auto) 8.8 % (0.0-7.3); Platelet Count 261 K/mm3 (140-440); Red Blood Count 4.61 M/mm3 (3.65-5.03); Red Cell Distribution Width 13.5 % (13.2-15.2)
[2018-06-14 13:52] LABS: HCG Qualitative,Urine Negative (Negative)
[2018-06-14 13:54] LABS: Bilirubin,Urine NEG (Negative); Blood,Urine SM (Negative); Color,Urine Amber (Yellow); Mucus,Urine 3+ /HPF
[2018-06-14] MEDS ORDERED: ZOFRAN IV ONE (13:54)
[2018-06-14] MEDS ORDERED: MORPHINE IV ONE (13:54)
[2018-06-14 14:11] LABS: Alanine Aminotransferase 169 units/L (7-56); BUN/Creatinine Ratio 18; Blood Urea Nitrogen 11 mg/dL (7-17); Calcium 9.1 mg/dL (8.4-10.2); Hemolysis Index 4
[2018-06-14] MEDS ORDERED: DILAUDID IV ONE (14:53)
[2018-06-14] MEDS ORDERED: DILAUDID ONE (14:58)
--- NOTE | 2018-06-14 15:24 | Cat Scan Report ---
CT ABDOMEN PELVIS WITH CONTRAST: HISTORY: Pelvic pain, abdominal pain, elevated liver function tests. COMPARISON: 04/16/17. TECHNIQUE: Helical CT in 1.25mm intervals following IV contrast. Sagittal and coronal reconstructions. FINDINGS: Lung bases: Normal. Liver: Normal. Biliary system: Normal. Pancreas: Normal. Spleen: Normal. Kidneys/ureters/bladder: The right kidney is normal. Multifocal cortical scarring in the superior left kidney is unchanged. The ureters and bladder are unremarkable. Adrenal glands: Normal. Aorta: Normal. Intestines: Normal. Appendix: Normal. Pelvic viscera: The uterus is enlarged and lobular. There appears to be an approximate 8.8 x 6.5 cm exophytic mass from the left lateral uterine wall. This probably represents a fibroid. This is unchanged since the previous exam. I believe I see the ovaries which are unremarkable. IUD is in place. Ascites: None. Adenopathy: None. Musculoskeletal: Normal. IMPRESSION: Large uterine fibroid, unchanged. Chronic cortical scarring in the left kidney, unchanged. No acute inflammatory process is identified. No significant change since 04/16/17.
--- NOTE | 2018-06-14 16:54 | Ultrasound Report ---
FINAL REPORT EXAM: US ABDOMEN LIMITED HISTORY: RUQ pain, elevated LFTs TECHNIQUE: Directed sonography of the right upper quadrant. PRIORS: None. FINDINGS: Gallbladder is of normal size and echogenicity without evidence of calculi. Wall thickness within normal limits. Intra-and extrahepatic bile ducts are of normal caliber. Liver has normal homogeneous echogenicity without focal abnormalities. Right kidney measures 9.7 cm in longest dimension and is grossly unremarkable. Visualized pancreatic parenchyma grossly unremarkable. IMPRESSION: 1. No acute findings.
== END 2018-06-14 17:17 | disposition home or self-care (01) ==
LOC: ED 12:41
DX: D25.9 Leiomyoma of uterus, unspecified (principal); R11.2 Nausea with vomiting, unspecified; R94.5 Abnormal results of liver function studies; F17.200 Nicotine dependence, unspecified, uncomplicated; N10 Acute pyelonephritis; Z91.018 Allergy to other foods
CPT/HCPCS: 74177; 76705; 80053; 81001; 81025; 85025; 96361; 96374; 96375; 99284; J1170; J2405; J7030; Q9967; J2270

== ENCOUNTER 2018-10-18 09:06 | Emergency (ER) | payer MEDICAID, OTHER ==
[2018-10-18 09:56] LABS: Bilirubin,Urine NEG (Negative); Blood,Urine NEG (Negative); Color,Urine Yellow (Yellow); Mucus,Urine 1+ /HPF; Protein,Urine <15 mg/dL mg/dL (Negative); Urobilinogen,Urine < 2.0 mg/dL (<2.0)
[2018-10-18 09:57] LABS: HCG Qualitative,Urine Negative (Negative)
--- NOTE | 2018-10-18 12:40 | Emergency Department Report ---
ED Abdominal Pain HPI - General Chief Complaint: Upper Respiratory Infection Stated Complaint: LOWER BACK/STOMACH PAIN Time Seen by Provider: 10/18/18 12:25 Source: patient Mode of arrival: Ambulatory Limitations: No Limitations - History of Present Illness Initial Comments: 28-year-old female with suprapubic pain for several days. Patient states the p ain is usually related to her fibroids, however she wants to make sure she does not have a bladder infection. She denies fever, dysuria, urinary frequency, vaginal discharge or bleeding. MD Complaint: abdominal pain -: days(s) (2) Location: suprapubic Radiation: none Migration to: no migration Severity: mild Severity scale (0 -10): 9 Quality: cramping Consistency: intermittent Improves With: nothing Worsens With: nothing Context: other (hx of fibroids) Associated Symptoms: denies: nausea, vomiting, fever, dysuria - Related Data Previous Rx's Medication Instructions Recorded Last Taken Type Omeprazole [PriLOSEC] 20 mg PO BID #40 cap 05/10/13 05/19/13 Rx Sulfamethoxazole/Trimethoprim 1 each PO BID #20 tablet 05/10/13 05/19/13 Rx [Bactrim DS] Promethazine [Phenergan] 1 tab PO Q6H PRN #20 tablet 05/21/13 Unknown Rx metroNIDAZOLE [Flagyl] 500 mg PO Q12HR #14 tab 09/13/16 Unknown Rx Ibuprofen [Motrin] 800 mg PO Q8HR PRN #30 tablet 04/16/17 Unknown Rx Nitrofurantoin [place]/M-Cryst 100 mg PO Q12HR #14 capsule 04/16/17 Unknown Rx [Macrobid CAP] Ondansetron [Zofran Odt] 4 mg PO Q8HR PRN #20 tab.rapdis 04/16/17 Unknown Rx traMADol [Ultram 50 MG tab] 50 mg PO Q6HR PRN #20 tablet 04/16/17 Unknown Rx Ibuprofen [Motrin 800 MG tab] 800 mg PO Q8HR PRN #12 tablet 09/15/17 Unknown Rx levoFLOXacin [Levaquin] 750 mg PO QDAY 7 Days #7 tablet 09/15/17 Unknown Rx Doxycycline [Vibramycin CAP] 100 mg PO Q12HR #28 capsule 02/20/18 Unknown Rx Phenazopyridine [Pyridium] 200 mg PO TID #6 tab 02/20/18 Unknown Rx Ondansetron [Zofran Odt] 4 mg PO Q8H PRN #10 tab.rapdis 06/14/18 Unknown Rx traMADol [Ultram 50 MG tab] 50 mg PO Q6HR PRN #12 tablet 06/14/18 Unknown Rx Naproxen [Naprosyn] 500 mg PO BID #20 tablet 10/18/18 Unknown Rx traMADol [Ultram] 50 mg PO Q6HR PRN #7 tablet 10/18/18 Unknown Rx Allergies Allergy/AdvReac Type Severity Reaction Status Date / Time strawberry [[place]] Allergy Itching Verified 10/18/18 09:08 ED Review of Systems ROS: Stated complaint: LOWER BACK/STOMACH PAIN Other details as noted in HPI Comment: All other systems reviewed and negative Constitutional: denies: chills, fever Gastrointestinal: abdominal pain. denies: nausea, vomiting Genitourinary: denies: dysuria, frequency, hematuria, discharge ED Past Medical Hx - Past Medical History Previous Medical History?: No Hx GERD: Yes Hx Renal Disease: Yes (POLYNEPHRITIS) Hx Asthma: No Additional medical history: pyelonephritis - Surgical History Additional Surgical History: facial surgery/childhood - Social History Smoking Status: Current Every Day Smoker Substance Use Type: Alcohol - Medications Home Medications: Home Medications Medication Instructions Recorded Confirmed Last Taken Type Omeprazole [PriLOSEC] 20 mg PO BID #40 cap 05/10/13 05/19/13 Rx Sulfamethoxazole/Trimethoprim 1 each PO BID #20 tablet 05/10/13 05/19/13 Rx [Bactrim DS] Promethazine [Phenergan] 1 tab PO Q6H PRN #20 tablet 05/21/13 Unknown Rx metroNIDAZOLE [Flagyl] 500 mg PO Q12HR #14 tab 09/13/16 Unknown Rx Ibuprofen [Motrin] 800 mg PO Q8HR PRN #30 tablet 04/16/17 Unknown Rx Nitrofurantoin [place]/M-Cryst 100 mg PO Q12HR #14 capsule 04/16/17 Unknown Rx [Macrobid CAP] Ondansetron [Zofran Odt] 4 mg PO Q8HR PRN #20 tab.rapdis 04/16/17 Unknown Rx traMADol [Ultram 50 MG tab] 50 mg PO Q6HR PRN #20 tablet 04/16/17 Unknown Rx Ibuprofen [Motrin 800 MG tab] 800 mg PO Q8HR PRN #12 tablet 09/15/17 Unknown Rx levoFLOXacin [Levaquin] 750 mg PO QDAY 7 Days #7 tablet 09/15/17 Unknown Rx Doxycycline [Vibramycin CAP] 100 mg PO Q12HR #28 capsule 02/20/18 Unknown Rx Phenazopyridine [Pyridium] 200 mg PO TID #6 tab 02/20/18 Unknown Rx Ondansetron [Zofran Odt] 4 mg PO Q8H PRN #10 tab.rapdis 06/14/18 Unknown Rx traMADol [Ultram 50 MG tab] 50 mg PO Q6HR PRN #12 tablet 06/14/18 Unknown Rx Naproxen [Naprosyn] 500 mg PO BID #20 tablet 10/18/18 Unknown Rx traMADol [Ultram] 50 mg PO Q6HR PRN #7 tablet 10/18/18 Unknown Rx ED Physical Exam - General Limitations: No Limitations General appearance: alert, in no apparent distress - Head Head exam: Present: atraumatic, normocephalic - Eye Eye exam: Present: normal appearance - ENT ENT exam: Present: mucous membranes moist - Neck Neck exam: Present: normal inspection - Respiratory Respiratory exam: Present: normal lung sounds bilaterally. Absent: respiratory distress - Cardiovascular Cardiovascular Exam: Present: regular rate, normal rhythm - GI/Abdominal GI/Abdominal exam: Present: soft, tenderness (mild suprapubic). Absent: distended - Extremities Exam Extremities exam: Present: normal inspection - Neurological Exam Neurological exam: Present: alert, oriented X3 - Psychiatric Psychiatric exam: Present: normal affect, normal mood - Skin Skin exam: Present: warm, dry, intact, normal color ED Course Vital Signs 10/18/18 10/18/18 09:09 13:04 Temperature 98.5 F Pulse Rate 76 71 Respiratory 18 16 Rate Blood Pressure 116/66 Blood Pressure 120/71 [Left] O2 Sat by Pulse 98 99 Oximetry ED Medical Decision Making - Differential Diagnosis UTI, , fribroids Critical care attestation.: If time is entered above; I have spent that time in minutes in the direct care of this critically ill patient, excluding procedure time. ED Disposition Clinical Impression: Chronic pelvic pain in female, History of uterine fibroid Disposition: DC-01 TO HOME OR SELFCARE Is pt being admited?: No Condition: Stable Instructions: Uterine Fibroids (ED) Prescriptions: Naproxen [Naprosyn] 500 mg PO BID #20 tablet traMADol [Ultram] 50 mg PO Q6HR PRN #7 tablet PRN Reason: Pain Referrals: [facility] [Provider Group] - 3-5 Days Time of Disposition: 12:39
[2018-10-18 13:08] VITALS: BP 120/71
== END 2018-10-18 13:04 | disposition home or self-care (01) ==
LOC: ED 09:06
DX: D25.9 Leiomyoma of uterus, unspecified (principal); R10.2 Pelvic and perineal pain; K21.9 Gastro-esophageal reflux disease without esophagitis; F17.200 Nicotine dependence, unspecified, uncomplicated; Z91.018 Allergy to other foods
CPT/HCPCS: 81001; 81025; 99283

== ENCOUNTER 2019-05-24 10:05 | Emergency (ER) | payer OTHER ==
--- NOTE | 2019-05-24 11:49 | Emergency Department Report ---
Minor Respiratory - HPI Chief Complaint: Upper Respiratory Infection Stated Complaint: CHILLS/FEVER/COLD SX Time Seen by Provider: 05/24/19 11:02 Duration: 2 Days Pain Location: Nose Severity: moderate Minor Respiratory: Yes Rhinorrhea, Yes Able to Tolerate Fluids, Yes Cough, Yes Sick Contacts (daughter), Yes Fever, No Sore Throat, No Ear Pain, No Hemoptysis, No Chest Pain, No Shortness of Breath Other History: This is a 29-year-old -[place] female who presents to the emergency room with chills, fever, cough, low back pain, and urinary frequency for 2 days. Patient states she's taken [id number] cold and flu meds with minimal improvement. Past medical history of pyelonephritis and GERD. Patient also reports dysuria. She denies nausea, vomiting, abdominal pain, hematuria, chest pain, coryza, wheezing, or shortness of breath. ED Review of Systems ROS: Stated complaint: CHILLS/FEVER/COLD SX Other details as noted in HPI Constitutional: chills, fever ENT: congestion. denies: ear pain, throat pain, dental pain, hearing loss, ep istaxis Respiratory: cough. denies: shortness of breath, wheezing Cardiovascular: denies: chest pain, palpitations Gastrointestinal: denies: abdominal pain, nausea, diarrhea Genitourinary: dysuria, frequency. denies: urgency, hematuria, discharge Musculoskeletal: back pain. denies: joint swelling, arthralgia Skin: denies: rash, lesions Neurological: denies: headache, weakness, paresthesias Psychiatric: denies: anxiety, depression ED Past Medical Hx - Past Medical History Hx GERD: Yes Hx Renal Disease: Yes (POLYNEPHRITIS) Hx Asthma: No Additional medical history: pyelonephritis - Surgical History Additional Surgical History: facial surgery/childhood - Social History Smoking Status: Current Every Day Smoker Substance Use Type: None - Medications Home Medications: Home Medications Medication Instructions Recorded Confirmed Last Taken Type Omeprazole [PriLOSEC] 20 mg PO BID #40 cap 05/10/13 05/19/13 Rx Sulfamethoxazole/Trimethoprim 1 each PO BID #20 tablet 05/10/13 05/19/13 Rx [Bactrim DS] Promethazine [Phenergan] 1 tab PO Q6H PRN #20 tablet 05/21/13 Unknown Rx metroNIDAZOLE [Flagyl] 500 mg PO Q12HR #14 tab 09/13/16 Unknown Rx Ibuprofen [Motrin] 800 mg PO Q8HR PRN #30 tablet 04/16/17 Unknown Rx Nitrofurantoin [place]/M-Cryst 100 mg PO Q12HR #14 capsule 04/16/17 Unknown Rx [Macrobid CAP] Ondansetron [Zofran Odt] 4 mg PO Q8HR PRN #20 tab.rapdis 04/16/17 Unknown Rx traMADol [Ultram 50 MG tab] 50 mg PO Q6HR PRN #20 tablet 04/16/17 Unknown Rx Ibuprofen [Motrin 800 MG tab] 800 mg PO Q8HR PRN #12 tablet 09/15/17 Unknown Rx levoFLOXacin [Levaquin] 750 mg PO QDAY 7 Days #7 tablet 09/15/17 Unknown Rx DOXYCYCLINE Hyclate [Vibramycin 100 mg PO Q12HR #28 capsule 02/20/18 Unknown Rx CAP] Phenazopyridine [Pyridium] 200 mg PO TID #6 tab 02/20/18 Unknown Rx Ondansetron [Zofran Odt] 4 mg PO Q8H PRN #10 tab.rapdis 06/14/18 Unknown Rx traMADol [Ultram 50 MG tab] 50 mg PO Q6HR PRN #12 tablet 06/14/18 Unknown Rx Naproxen [Naprosyn] 500 mg PO BID #20 tablet 10/18/18 Unknown Rx traMADol [Ultram] 50 mg PO Q6HR PRN #7 tablet 10/18/18 Unknown Rx Benzonatate [Tessalon Perles] 100 mg PO Q8HR PRN #30 capsule 05/24/19 Unknown Rx Cetirizine HCl [Zyrtec 10mg tab] 10 mg PO DAILY #30 tablet 05/24/19 Unknown Rx Fluticasone [Flonase] 1 spray NS QDAY #1 bottle 05/24/19 Unknown Rx Guaifenesin/Dm/Pseudoephedrine 118 ml PO Q6H #1 bottle 05/24/19 Unknown Rx [Trispec Pse Liquid] Minor Respiratory Exam - Exam General: Vital signs noted. No distress. Alert and acting appropriately. HEENT: Yes Moist Mucous Membranes, Yes Rhinorrhea (turbinates mildly congested with clear discharge), No Pharyngeal Erythema, No Pharyngeal Exudates, No Conjuctival Injection, No Frontal Tenderness, No Maxillary Tenderness Ear: Neither TM Bulge, Neither TM Erythema, Neither EAC Pain, Neither EAC Discharge Neck: Yes Supple, No Adenopathy Lungs: Yes Good Air Exchange, No Wheezes, No Ronchi, No Stridor, No Cough, No Labored Respirations, No Retractions, No Use of Accessory Muscles, No Other Abnormal Lung Sounds Heart: Yes Regular, No Murmur Abdomen: Yes Normal Bowel Sounds, No Tenderness, No Peritoneal Signs Skin: No Rash, No Edema Neurologic: Alert and oriented, no deficits. Musculoskeletal: Unremarkable. Back: Negative CVA tenderness ED Course Vital Signs 05/24/19 10:42 Temperature 98.9 F Pulse Rate 68 Respiratory 18 Rate Blood Pressure 103/68 O2 Sat by Pulse 98 Oximetry ED Medical Decision Making - Lab Data Lab Results 05/24/19 Range/Units 12:22 Urine Color Yellow (Yellow) Urine Turbidity Slightly-cloudy (Clear) Urine pH 6.0 (5.0-7.0) Ur Specific [place] 1.015 (1.003-1.030) Urine Protein <15 mg/dl (Negative) mg/dL Urine Glucose (UA) Neg (Negative) mg/dL Urine Ketones Neg (Negative) mg/dL Urine Blood Neg (Negative) Urine Nitrite Neg (Negative) Urine Bilirubin Neg (Negative) Urine Urobilinogen < 2.0 (<2.0) mg/dL Ur Leukocyte Esterase Tr (Negative) Urine WBC (Auto) 2.0 (0.0-6.0) /HPF Urine RBC (Auto) 4.0 (0.0-6.0) /HPF U Epithel Cells (Auto) 13.0 (0-13.0) /HPF Urine Mucus Few /HPF - Medical Decision Making Patient examined by me and stable. No distress noted. Vitals normal. Urinalysis obtained and normal. Findings are susceptible of upper respiratory infection. Start benzonatate, citrusy, Flonase, Mucinex DM. Instructed to increase fluid intake. Reviewed results in the ER plan with patient. Patient agree with emergency room plan. Discharged home stable. Follow up with Primary Care Provider in 2-3 days. Critical care attestation.: If time is entered above; I have spent that time in minutes in the direct care of this critically ill patient, excluding procedure time. ED Disposition Clinical Impression: Upper respiratory infection Qualifiers: URI type: acute nasopharyngitis (common cold) Qualified Code(s): J00 - Acute nasopharyngitis [common cold] Disposition: DC- TO HOME OR SELFCARE Is pt being admited?: No Does the pt Need Aspirin: No Condition: Stable Instructions: Cold Symptoms (ED), Upper Respiratory Infection (ED) Additional Instructions: Increase fluid intake and rest. Wash hands frequently. Continue taking Tylenol or ibuprofen to control fever. F/U with Primary Care Provider. Return to ER if fever, SOB, or difficulty breathing after 48 hours of supportive care. Prescriptions: Fluticasone [Flonase] 1 spray NS QDAY #1 bottle Benzonatate [Tessalon Perles] 100 mg PO Q8HR PRN #30 capsule PRN Reason: Cough Guaifenesin/Dm/Pseudoephedrine [Trispec Pse Liquid] 118 ml PO Q6H #1 bottle Cetirizine HCl [Zyrtec 10mg tab] 10 mg PO DAILY #30 tablet Referrals: ABEBA JOSEPH MD [Staff Physician] - 3-[address] [facility] [Provider Group] - 3-5 Days [facility] [Provider Group] - 3-5 Days Forms: Work/School Release Form(ED) Time of Disposition: 14:29
[2019-05-24 13:55] LABS: Bilirubin,Urine NEG (Negative); Blood,Urine NEG (Negative); Color,Urine Yellow (Yellow); Mucus,Urine FEW /HPF; Protein,Urine <15 mg/dL mg/dL (Negative); Urobilinogen,Urine < 2.0 mg/dL (<2.0)
[2019-05-24 14:39] VITALS: BP 105/60
== END 2019-05-24 14:42 | disposition home or self-care (01) ==
LOC: ED 10:05
DX: J06.9 Acute upper respiratory infection, unspecified (principal); K21.9 Gastro-esophageal reflux disease without esophagitis; F17.200 Nicotine dependence, unspecified, uncomplicated; Z91.018 Allergy to other foods; Z79.899 Other long term (current) drug therapy
CPT/HCPCS: 81001

== ENCOUNTER 2020-08-28 11:38 | Emergency (ER) | payer OTHER ==
--- NOTE | 2020-08-28 11:49 | Event Note ---
ED Screening Note Date of service: 08/28/20 Time: 11:48 ED Screening Note: Pleasant 30-year-old female presents emerged department with generalized abdominal pain worse in the right lower quadrant right upper quadrant and epigastrium for the past 3 months with associated heavy vaginal bleeding. She reports she will be on her menstrual cycle 3 weeks out of the month which is abnormal for her. This initial assessment/diagnostic orders/clinical plan/treatment(s) is/are subject to change based on patients health status, clinical progression and re- assessment by fellow clinical providers in the ED. Further treatment and workup at subsequent clinical providers discretion. Patient/guardian urged not to elope from the ED as their condition may be serious if not clinically assessed and managed. Initial orders include: CBC, CMP, lipase, urinalysis, urine test
[2020-08-28 12:30] LABS: Basophils # (Auto) 0.1 K/mm3 (0.0-0.1); Basophils % (Auto) 1.1 % (0.0-1.8); Eosinophils # (Auto) 0.3 K/mm3 (0.0-0.4); Eosinophils % (Auto) 4.1 % (0.0-4.3); Hematocrit 30.1 % (30.3-42.9); Hemoglobin 9.9 gm/dl (10.1-14.3); Lymphocytes # (Auto) 2.5 K/mm3 (1.2-5.4); Lymphocytes % (Auto) 35.9 % (13.4-35.0); Mean Corpuscular HGB Conc 33 % (30-34); Mean Corpuscular Volume 81 fl (79-97); Monocytes # (Auto) 0.5 K/mm3 (0.0-0.8); Monocytes % (Auto) 7.5 % (0.0-7.3); Platelet Count 407 K/mm3 (140-440); Red Blood Count 3.73 M/mm3 (3.65-5.03); Red Cell Distribution Width 15.2 % (13.2-15.2)
[2020-08-28] MEDS ORDERED: LIDOCAINE VISCOUS 2% 15 ML ORAL LIQD PO ONE (12:36)
[2020-08-28] MEDS ORDERED: ALUM-MAG HYDROXIDE-SIMETHICONE 200-200-20MG/5ML ORAL LIQD 30 ML PO ONE (12:36)
--- NOTE | 2020-08-28 12:49 | Emergency Department Report ---
ED General Adult HPI - General Chief complaint: Abdominal Pain Stated complaint: DARK URINE/RT SIDE EXTREME PAIN Time Seen by Provider: 08/28/20 12:32 Source: patient Mode of arrival: Ambulatory Limitations: No Limitations - History of Present Illness Initial comments: 30-year-old female presenting with chief complaint of abdominal pain. She states that over the past few months she has had intermittent pain to the upper abdomen specifically right upper quadrant and epigastrium worsened with eating, better if she refrains from eating. She states that this is intermittent in nature and is not associated with any vomiting or diarrhea. The patient also reports that over the past few months she is also been having very heavy periods lasting for up to 3 weeks of the month. She states that she has cramping associated with this. Symptoms are moderate, no alleviating or exacerbating factors noted. - Related Data Previous Rx's Medication Instructions Recorded Last Taken Type Omeprazole [PriLOSEC] 20 mg PO BID #40 cap 05/10/13 05/19/13 Rx Sulfamethoxazole/Trimethoprim 1 each PO BID #20 tablet 05/10/13 05/19/13 Rx [Bactrim DS] Promethazine [Phenergan] 1 tab PO Q6H PRN #20 tablet 05/21/13 Unknown Rx metroNIDAZOLE [Flagyl] 500 mg PO Q12HR #14 tab 09/13/16 Unknown Rx Ibuprofen [Motrin] 800 mg PO Q8HR PRN #30 tablet 04/16/17 Unknown Rx Ondansetron [Zofran Odt] 4 mg PO Q8HR PRN #20 tab.rapdis 04/16/17 Unknown Rx traMADoL [Ultram 50 MG tab] 50 mg PO Q6HR PRN #20 tablet 04/16/17 Unknown Rx Ibuprofen [Motrin 800 MG tab] 800 mg PO Q8HR PRN #12 tablet 09/15/17 Unknown Rx levoFLOXacin [Levaquin] 750 mg PO QDAY 7 Days #7 tablet 09/15/17 Unknown Rx DOXYCYCLINE Hyclate [Vibramycin 100 mg PO Q12HR #28 capsule 02/20/18 Unknown Rx CAP] Phenazopyridine [Pyridium] 200 mg PO TID #6 tab 02/20/18 Unknown Rx Ondansetron [Zofran Odt] 4 mg PO Q8H PRN #10 tab.rapdis 10/23/18 Unknown Rx traMADoL [Ultram 50 MG tab] 50 mg PO Q6HR PRN #12 tablet 06/14/18 Unknown Rx Naproxen [Naprosyn] 500 mg PO BID #20 tablet 10/18/18 Unknown Rx traMADoL [Ultram] 50 mg PO Q6HR PRN #7 tablet 10/18/18 Unknown Rx Benzonatate [Tessalon Perles] 100 mg PO Q8HR PRN #30 capsule 05/24/19 Unknown Rx Cetirizine HCl [Zyrtec 10mg tab] 10 mg PO DAILY #30 tablet 05/24/19 Unknown Rx Fluticasone [Flonase] 1 spray NS QDAY #1 bottle 05/24/19 Unknown Rx Guaifenesin/Dm/Pseudoephedrine 118 ml PO Q6H #1 bottle 05/24/19 Unknown Rx [Trispec Pse Liquid] Nitrofurantoin [place]/M-Cryst 100 mg PO Q12HR #14 capsule 08/28/20 Unknown Rx [Macrobid CAP] Pantoprazole [Protonix] 40 mg PO QDAY #30 tablet 08/28/20 Unknown Rx Allergies Allergy/AdvReac Type Severity Reaction Status Date / Time strawberry [[place]] Allergy Itching Verified 08/28/20 11:45 ED Review of Systems ROS: Stated complaint: DARK URINE/RT SIDE EXTREME PAIN Other details as noted in HPI Comment: All other systems reviewed and negative Gastrointestinal: as per HPI Genitourinary: as per HPI ED Past Medical Hx - Past Medical History Hx GERD: Yes Hx Renal Disease: Yes (POLYNEPHRITIS) Hx Asthma: No Additional medical history: pyelonephritis - Surgical History Additional Surgical History: facial surgery/childhood - Social History Smoking Status: Current Every Day Smoker Substance Use Type: None - Medications Home Medications: Home Medications Medication Instructions Recorded Confirmed Last Taken Type Omeprazole [PriLOSEC] 20 mg PO BID #40 cap 05/10/13 05/19/13 Rx Sulfamethoxazole/Trimethoprim 1 each PO BID #20 tablet 05/10/13 05/19/13 Rx [Bactrim DS] Promethazine [Phenergan] 1 tab PO Q6H PRN #20 tablet 05/21/13 Unknown Rx metroNIDAZOLE [Flagyl] 500 mg PO Q12HR #14 tab 09/13/16 Unknown Rx Ibuprofen [Motrin] 800 mg PO Q8HR PRN #30 tablet 04/16/17 Unknown Rx Ondansetron [Zofran Odt] 4 mg PO Q8HR PRN #20 tab.rapdis 04/16/17 Unknown Rx traMADoL [Ultram 50 MG tab] 50 mg PO Q6HR PRN #20 tablet 04/16/17 Unknown Rx Ibuprofen [Motrin 800 MG tab] 800 mg PO Q8HR PRN #12 tablet 09/15/17 Unknown Rx levoFLOXacin [Levaquin] 750 mg PO QDAY 7 Days #7 tablet 09/15/17 Unknown Rx DOXYCYCLINE Hyclate [Vibramycin 100 mg PO Q12HR #28 capsule 02/20/18 Unknown Rx CAP] Phenazopyridine [Pyridium] 200 mg PO TID #6 tab 02/20/18 Unknown Rx Ondansetron [Zofran Odt] 4 mg PO Q8H PRN #10 tab.rapdis 06/14/18 Unknown Rx traMADoL [Ultram 50 MG tab] 50 mg PO Q6HR PRN #12 tablet 06/14/18 Unknown Rx Naproxen [Naprosyn] 500 mg PO BID #20 tablet 10/18/18 Unknown Rx traMADoL [Ultram] 50 mg PO Q6HR PRN #7 tablet 10/18/18 Unknown Rx Benzonatate [Tessalon Perles] 100 mg PO Q8HR PRN #30 capsule 05/24/19 Unknown Rx Cetirizine HCl [Zyrtec 10mg tab] 10 mg PO DAILY #30 tablet 05/24/19 Unknown Rx Fluticasone [Flonase] 1 spray NS QDAY #1 bottle 05/24/19 Unknown Rx Guaifenesin/Dm/Pseudoephedrine 118 ml PO Q6H #1 bottle 05/24/19 Unknown Rx [Trispec Pse Liquid] Nitrofurantoin [place]/M-Cryst 100 mg PO Q12HR #14 capsule 08/28/20 Unknown Rx [Macrobid CAP] Pantoprazole [Protonix] 40 mg PO QDAY #30 tablet 08/28/20 Unknown Rx ED Physical Exam - General Limitations: No Limitations General appearance: alert, in no apparent distress - Head Head exam: Present: atraumatic, normocephalic - Eye Eye exam: Present: normal appearance - ENT ENT exam: Present: mucous membranes moist - Neck Neck exam: Present: normal inspection - Respiratory Respiratory exam: Present: normal lung sounds bilaterally. Absent: respiratory distress - Cardiovascular Cardiovascular Exam: Present: regular rate, normal rhythm. Absent: systolic murmur, diastolic murmur, rubs, gallop - GI/Abdominal GI/Abdominal exam: Present: soft, tenderness (Right upper quadrant, epigastrium, right lower quadrant), normal bowel sounds - Extremities Exam Extremities exam: Present: normal inspection - Back Exam Back exam: Present: normal inspection - Neurological Exam Neurological exam: Present: alert, oriented X3 - Psychiatric Psychiatric exam: Present: normal affect, normal mood - Skin Skin exam: Present: warm, dry, intact, normal color. Absent: rash ED Course Vital Signs 08/28/20 11:47 Temperature 98.4 F Pulse Rate 88 Respiratory 19 Rate Blood Pressure 121/64 O2 Sat by Pulse 99 Oximetry ED Medical Decision Making - Lab Data Result diagrams: 08/28/20 12:09 08/28/20 12:09 - Radiology Data Radiology results: report reviewed Normal right upper quadrant ultrasound, fibroids noted on pelvic ultrasound - Medical Decision Making Patient present with 2 complaints. 1. Heavy periods lasting for up to 3 weeks of the month for the past 3 months associated cramping. Not on OCPs, not on blood thinners. Plan is basic labs, pelvic ultrasound. 2. Upper abdominal pain worsened after eating ongoing for the past few months. No vomiting, fevers, diarrhea. Plan for right upper quadrant ultrasound, labs. Treat upper quadrant ultrasound normal, pelvic ultrasound does show fibroids. Recommend outpatient follow-up with GI and CRTT. Labs are overall stable aside from mild anemia. - Differential Diagnosis Cholelithiasis, cholecystitis, ovarian cyst, fibroids Critical care attestation.: If time is entered above; I have spent that time in minutes in the direct care of this critically ill patient, excluding procedure time. ED Disposition Clinical Impression: UTI (lower urinary tract infection), Postprandial epigastric pain Uterine fibroid Qualifiers: Uterine leiomyoma location: unspecified location Qualified Code(s): D25.9 - Leiomyoma of uterus, unspecified Disposition: - TO HOME OR SELFCARE Is pt being admited?: No Condition: Good Instructions: Urinary Tract Infection, Adult, [id number], Abdominal Pain (ED), Uterine Fibroids, [id number] Prescriptions: Nitrofurantoin [place]/M-Cryst [Macrobid CAP] 100 mg PO Q12HR #14 capsule Pantoprazole [Protonix] 40 mg PO QDAY #30 tablet Referrals: PRIMARY CARE, [Primary Care Provider] - 3-5 Days ARIE LIU MD [Staff Physician] - 3-5 Days SURY LUONG MD [Staff Physician] - 3-5 Days Time of Disposition: 15:33
[2020-08-28 12:57] LABS: Alanine Aminotransferase 9 units/L (7-56); Albumin 3.5 g/dL (3.9-5); Blood Urea Nitrogen 11 mg/dL (7-17); Calcium 8.4 mg/dL (8.4-10.2); Hemolysis Index 6
[2020-08-28 12:58] LABS: BUN/Creatinine Ratio 18
[2020-08-28 13:06] LABS: HCG Qualitative,Urine Negative (Negative)
[2020-08-28 13:09] LABS: Bilirubin,Urine NEG (Negative); Blood,Urine MOD (Negative); Color,Urine Yellow (Yellow); Mucus,Urine 2+ /HPF; Urobilinogen,Urine < 2.0 mg/dL (<2.0)
--- NOTE | 2020-08-28 14:45 | Ultrasound Report ---
Pelvic Ultrasound HISTORY: Acute generalized pelvic pain. TECHNIQUE: Grayscale and color imaging performed. COMPARISON: Pelvic ultrasound from 04/16/2017 FINDINGS: Transabdominal and endovaginal imaging was performed. Uterus measures 13.1 x 5.5 x 5.0 cm. IUD is positioned near the fundus. Uterine fibroids are present the largest measuring 11 cm left of midline. Endometrial complex measures 8 mm. Right ovary is normal in appearance with small follicles. The left ovary is not visualized on this ex am. No free fluid. IMPRESSION: 1. Uterine fibroid disease, with a large fibroid left of midline measuring 11 cm and similar to the p revious exam. 2. IUD well-positioned. 3. Left ovary not visualized. Signer Name: Laith Acharya MD Signed: 08/28/2020 2:41 PM Workstation Name: [id number]
--- NOTE | 2020-08-28 15:31 | Ultrasound Report ---
LIMITED RUQ ABDOMINAL ULTRASOUND INDICATION: ruq pain. COMPARISON: 06/14/2018. FINDINGS: Pancreas: Visualized portions show no significant abnormality. Abdominal Aorta: No significant abnormality. IVC: No significant abnormality. Liver: The liver measures 12.1 cm in length. No significant abnormality. Normal hepatopedal blood fl ow in the main portal vein. Gallbladder: No significant abnormality. Bile ducts: No significant abnormality. Common bile duct measures 2 mm. Right kidney: No significant abnormality visualized. Free fluid: None. Additional Findings: None. IMPRESSION: Normal exam. Signer Name: Leodan Collins Jr, MD Signed: 08/28/2020 3:27 PM Workstation Name: [id number]
[2020-08-28 15:46] VITALS: BP 98/50
== END 2020-08-28 15:47 | disposition home or self-care (01) ==
LOC: ED 11:38
DX: N39.0 Urinary tract infection, site not specified (principal); D25.9 Leiomyoma of uterus, unspecified; K21.9 Gastro-esophageal reflux disease without esophagitis; F17.200 Nicotine dependence, unspecified, uncomplicated; Z79.899 Other long term (current) drug therapy; Z88.8 Allergy status to other drugs, medicaments and biological substances
CPT/HCPCS: 36415; 76705; 76830; 76856; 80053; 81001; 81025; 83690; 85025; 87086

== ENCOUNTER 2020-10-31 17:14 | Emergency (ER) | payer OTHER ==
--- NOTE | 2020-10-31 17:40 | Emergency Department Report ---
Blank Doc - Documentation Documentation: 30-year-old female that presents with worsening abdominal pain with nausea vom iting diarrhea. Patient seen PCP which was placed on Cipro Flagyl and Protonix and stated was not able to keep anything down. 1- This initial assessment/diagnostic orders/clinical plan/ treatment(s) is/are subject to change based on pt's health status, clinical progression and re- assessment by fellow clinical providers in the ED. Further treatment and workup at subsequent clinical provers discretion. Patient/guardians urged not to elope from ED as their condition may be serious if not clinically assessed and managed. 2-labs 3-UA
[2020-10-31 18:09] LABS: Hematocrit 31.5 % (30.3-42.9); Hemoglobin 10.2 gm/dl (10.1-14.3); Mean Corpuscular HGB Conc 32 % (30-34); Mean Corpuscular Volume 77 fl (79-97); Platelet Count 407 K/mm3 (140-440); Red Cell Distribution Width 16.2 % (13.2-15.2)
[2020-10-31 18:35] LABS: Bacteria,Urine 1+ /HPF (Negative); Bilirubin,Urine SM (Negative); Blood,Urine MOD (Negative); Color,Urine Amber (Yellow); Mucus,Urine 3+ /HPF; Urobilinogen,Urine < 2.0 mg/dL (<2.0)
[2020-10-31 18:45] LABS: Anisocytosis Few; Hypochromasia 1+; Total Cells Counted 100
[2020-10-31] MEDS ORDERED: cefTRIAXone/NS 1 GM/50 ML 1 GM/50 ML BAG IV ONE (18:50)
[2020-10-31] MEDS ORDERED: ONDANSETRON 4 MG/2 ML INJ IV ONE (18:50)
[2020-10-31] MEDS ORDERED: KETOROLAC 30 MG/1 ML INJ IV ONE (18:50)
[2020-10-31] MEDS ORDERED: SODIUM CHLORIDE 0.9% 1000 ML 1,000 ML IV ONE (18:50)
[2020-10-31 18:52] LABS: Ictotest,Urine Negative (Negative)
[2020-10-31 19:00] LABS: Alanine Aminotransferase 9 units/L (7-56); Albumin 3.8 g/dL (3.9-5); Blood Urea Nitrogen 7 mg/dL (7-17); Calcium 8.9 mg/dL (8.4-10.2); Hemolysis Index 1
[2020-10-31 19:22] LABS: BUN/Creatinine Ratio 12
--- NOTE | 2020-10-31 20:12 | Emergency Department Report ---
ED N/V/D HPI - General Chief complaint: Abdominal Pain Stated complaint: ABD PAIN Time Seen by Provider: 10/31/20 17:37 Source: patient Mode of arrival: Ambulatory Limitations: No Limitations - History of Present Illness Initial comments: Patient is a 30-year-old female presents emergency room complaints of nausea, vomiting, diarrhea that began 3 days ago. She states that she had [employer] food and later that night began feeling sick and having vomiting and diarrhea. She states that yesterday she began having right flank pain and urinary symptoms such as dysuria and dark urine and odor to the urine. She denies any hematochezia, melena, hematemesis, abnormal vaginal discharge. Patient states that she saw her primary care doctor yesterday and states that her dose of Protonix was increased and she was started on ciprofloxacin and Flagyl. She states that she has not given anything for her nausea or vomiting. She has a past medical history of GERD. Allergy to strawberry and tetracyclines. She has an IUD for control. - Related Data Previous Rx's Medication Instructions Recorded Last Taken Type Omeprazole [PriLOSEC] 20 mg PO BID #40 cap 05/10/13 05/19/13 Rx Sulfamethoxazole/Trimethoprim 1 each PO BID #20 tablet 05/10/13 05/19/13 Rx [Bactrim DS] Promethazine [Phenergan] 1 tab PO Q6H PRN #20 tablet 05/21/13 Unknown Rx metroNIDAZOLE [Flagyl] 500 mg PO Q12HR #14 tab 09/13/16 Unknown Rx Ibuprofen [Motrin] 800 mg PO Q8HR PRN #30 tablet 04/16/17 Unknown Rx Ondansetron [Zofran Odt] 4 mg PO Q8HR PRN #20 tab.rapdis 04/16/17 Unknown Rx traMADoL [Ultram 50 MG tab] 50 mg PO Q6HR PRN #20 tablet 04/16/17 Unknown Rx Ibuprofen [Motrin 800 MG tab] 800 mg PO Q8HR PRN #12 tablet 09/15/17 Unknown Rx levoFLOXacin [Levaquin] 750 mg PO QDAY 7 Days #7 tablet 09/15/17 Unknown Rx DOXYCYCLINE Hyclate [Vibramycin 100 mg PO Q12HR #28 capsule 02/20/18 Unknown Rx CAP] Phenazopyridine [Pyridium] 200 mg PO TID #6 tab 02/20/18 Unknown Rx Ondansetron [Zofran Odt] 4 mg PO Q8H PRN #10 tab.rapdis 06/14/18 Unknown Rx traMADoL [Ultram 50 MG tab] 50 mg PO Q6HR PRN #12 tablet 06/14/18 Unknown Rx Naproxen [Naprosyn] 500 mg PO BID #20 tablet 10/18/18 Unknown Rx traMADoL [Ultram] 50 mg PO Q6HR PRN #7 tablet 10/18/18 Unknown Rx Benzonatate [Tessalon Perles] 100 mg PO Q8HR PRN #30 capsule 05/24/19 Unknown Rx Cetirizine HCl [Zyrtec 10mg tab] 10 mg PO DAILY #30 tablet 05/24/19 Unknown Rx Fluticasone [Flonase] 1 spray NS QDAY #1 bottle 05/24/19 Unknown Rx Guaifenesin/Dm/Pseudoephedrine 118 ml PO Q6H #1 bottle 05/24/19 Unknown Rx [Trispec Pse Liquid] Nitrofurantoin [place]umas/M-Cryst 100 mg PO Q12HR #14 capsule 08/28/20 Unknown Rx [Macrobid CAP] Pantoprazole [Protonix] 40 mg PO QDAY #30 tablet 08/28/20 Unknown Rx Ketorolac [Toradol] 10 mg PO Q6H PRN #10 tablet 10/31/20 Unknown Rx Phenazopyridine [Pyridium] 100 mg PO TID #9 tab 10/31/20 Unknown Rx Promethazine [Phenergan] 25 mg PO Q8HR PRN #12 tab 10/31/20 Unknown Rx Allergies Allergy/AdvReac Type Severity Reaction Status Date / Time strawberry [Magnet] Allergy Itching Verified 10/31/20 17:37 Tetracyclines Allergy Unknown Verified 10/31/20 17:37 ED Review of Systems ROS: Stated complaint: ABD PAIN Other details as noted in HPI Comment: All other systems reviewed and negative ED Past Medical Hx - Past Medical History Hx GERD: Yes Hx Renal Disease: Yes (POLYNEPHRITIS) Hx Asthma: No Additional medical history: pyelonephritis FIBROID - Surgical History Additional Surgical History: facial surgery/childhood - Social History Smoking Status: Current Some Day Smoker Substance Use Type: None - Medications Home Medications: Home Medications Medication Instructions Recorded Confirmed Last Taken Type Omeprazole [PriLOSEC] 20 mg PO BID #40 cap 05/10/13 05/19/13 Rx Sulfamethoxazole/Trimethoprim 1 each PO BID #20 tablet 05/10/13 05/19/13 Rx [Bactrim DS] Promethazine [Phenergan] 1 tab PO Q6H PRN #20 tablet 05/21/13 Unknown Rx metroNIDAZOLE [Flagyl] 500 mg PO Q12HR #14 tab 09/13/16 Unknown Rx Ibuprofen [Motrin] 800 mg PO Q8HR PRN #30 tablet 04/16/17 Unknown Rx Ondansetron [Zofran Odt] 4 mg PO Q8HR PRN #20 tab.rapdis 04/16/17 Unknown Rx traMADoL [Ultram 50 MG tab] 50 mg PO Q6HR PRN #20 tablet 04/16/17 Unknown Rx Ibuprofen [Motrin 800 MG tab] 800 mg PO Q8HR PRN #12 tablet 09/15/17 Unknown Rx levoFLOXacin [Levaquin] 750 mg PO QDAY 7 Days #7 tablet 09/15/17 Unknown Rx DOXYCYCLINE Hyclate [Vibramycin 100 mg PO Q12HR #28 capsule 02/20/18 Unknown Rx CAP] Phenazopyridine [Pyridium] 200 mg PO TID #6 tab 02/20/18 Unknown Rx Ondansetron [Zofran Odt] 4 mg PO Q8H PRN #10 tab.rapdis 06/14/18 Unknown Rx traMADoL [Ultram 50 MG tab] 50 mg PO Q6HR PRN #12 tablet 06/14/18 Unknown Rx Naproxen [Naprosyn] 500 mg PO BID #20 tablet 10/18/18 Unknown Rx traMADoL [Ultram] 50 mg PO Q6HR PRN #7 tablet 10/18/18 Unknown Rx Benzonatate [Tessalon Perles] 100 mg PO Q8HR PRN #30 capsule 05/24/19 Unknown Rx Cetirizine HCl [Zyrtec 10mg tab] 10 mg PO DAILY #30 tablet 05/24/19 Unknown Rx Fluticasone [Flonase] 1 spray NS QDAY #1 bottle 05/24/19 Unknown Rx Guaifenesin/Dm/Pseudoephedrine 118 ml PO Q6H #1 bottle 05/24/19 Unknown Rx [Trispec Pse Liquid] Nitrofurantoin [place]/M-Cryst 100 mg PO Q12HR #14 capsule 08/28/20 Unknown Rx [Macrobid CAP] Pantoprazole [Protonix] 40 mg PO QDAY #30 tablet 08/28/20 Unknown Rx Ketorolac [Toradol] 10 mg PO Q6H PRN #10 tablet 10/31/20 Unknown Rx Phenazopyridine [Pyridium] 100 mg PO TID #9 tab 10/31/20 Unknown Rx Promethazine [Phenergan] 25 mg PO Q8HR PRN #12 tab 10/31/20 Unknown Rx ED Physical Exam - General Limitations: No Limitations General appearance: alert, in no apparent distress - Head Head exam: Present: atraumatic, normocephalic - Eye Eye exam: Present: normal appearance - ENT ENT exam: Present: mucous membranes moist - Respiratory Respiratory exam: Present: normal lung sounds bilaterally. Absent: respiratory distress, wheezes, rales, rhonchi, stridor, chest wall tenderness, accessory muscle use, decreased breath sounds, prolonged expiratory - Cardiovascular Cardiovascular Exam: Present: regular rate, normal rhythm, normal heart sounds. Absent: systolic murmur, diastolic murmur, rubs, gallop - GI/Abdominal GI/Abdominal exam: Present: soft, normal bowel sounds. Absent: distended, tenderness, guarding, rebound, rigid - Back Exam Back exam: Present: CVA tenderness (R). Absent: CVA tenderness (L) - Neurological Exam Neurological exam: Present: alert, oriented X3 - Psychiatric Psychiatric exam: Present: normal affect, normal mood - Skin Skin exam: Present: warm, dry, intact ED Course Vital Signs 10/31/20 10/31/20 17:42 21:30 Temperature 98.3 F Pulse Rate 96 H 81 Respiratory 20 16 Rate Blood Pressure 126/78 Blood Pressure 106/54 [Left] O2 Sat by Pulse 98 99 Oximetry ED Medical Decision Making - Lab Data Result diagrams: 10/31/20 17:56 10/31/20 17:56 Lab Results 10/31/20 10/31/20 10/31/20 Range/Units 17:56 17:56 17:56 WBC 14.2 H (4.5-11.0) K/mm3 RBC 4.10 (3.65-5.03) M/mm3 Hgb 10.2 (10.1-14.3) gm/dl Hct 31.5 (30.3-42.9) % MCV 77 L (79-97) fl MCH 25 L (28-32) pg MCHC 32 (30-34) % RDW 16.2 H (13.2-15.2) % Plt Count 407 (140-440) K/mm3 Add Manual Diff Complete Total Counted 100 Seg Neutrophils % Radio Technician Seg Neuts % (Manual) 90.0 H (40.0-70.0) % Lymphocytes % (Manual) 7.0 L (13.4-35.0) % Monocytes % (Manual) 3.0 (0.0-7.3) % Nucleated RBC % Not Reportable Seg Neutrophils # Man 12.8 H (1.8-7.7) K/mm3 Band Neutrophils # 0.0 K/mm3 Lymphocytes # (Manual) 1.0 L (1.2-5.4) K/mm3 Abs React Lymphs (Man) 0.0 K/mm3 Monocytes # (Manual) 0.4 (0.0-0.8) K/mm3 Eosinophils # (Manual) 0.0 (0.0-0.4) K/mm3 Basophils # (Manual) 0.0 (0.0-0.1) K/mm3 Metamyelocytes # 0.0 K/mm3 Myelocytes # 0.0 K/mm3 Promyelocytes # 0.0 K/mm3 Blast Cells # 0.0 K/mm3 WBC Morphology Not Reportable Hypersegmented Neuts Not Reportable Hyposegmented Neuts Not Reportable Hypogranular Neuts Not Reportable Smudge Cells Not Reportable Toxic Granulation Not Reportable Toxic Vacuolation Not Reportable Dohle Bodies Not Reportable Pelger-Huet Anomaly Not Reportable Cade Rods Not Reportable Platelet Estimate Not Reportable Clumped Platelets Not Reportable Plt Clumps, EDTA Not Reportable Large Platelets Not Reportable Giant Platelets Not Reportable Platelet Satelliting Not Reportable Plt Morphology Comment Not Reportable RBC Morphology Not Reportable Dimorphic RBCs Not Reportable Polychromasia Not Reportable Hypochromasia 1+ Poikilocytosis Not Reportable Anisocytosis Few Microcytosis Not Reportable Macrocytosis Not Reportable Spherocytes Not Reportable Pappenheimer Bodies Not Reportable Sickle Cells Not Reportable Target Cells Not Reportable Tear Drop Cells Not Reportable Ovalocytes Not Reportable Helmet Cells Not Reportable Ray[place] Bodies Not Reportable [place] Rings Not Reportable Maryam Cells Not Reportable Bite Cells Not Reportable Crenated Cell Not Reportable Elliptocytes Not Reportable Acanthocytes (Spur) Not Reportable Rouleaux Not Reportable Hemoglobin C Crystals Not Reportable Schistocytes Not Reportable Malaria parasites Not Reportable Sandoval Bodies Not Reportable Hem Pathologist Commnt No Sodium 133 L (137-145) mmol/L Potassium 3.6 (3.6-5.0) mmol/L Chloride 97.5 L (98-107) mmol/L Carbon Dioxide 23 (22-30) mmol/L Anion Gap 16 mmol/L BUN 7 (7-17) mg/dL Creatinine 0.6 (0.6-1.2) mg/dL Estimated GFR > 60 ml/min BUN/Creatinine Ratio 12 % Glucose 95 (65-100) mg/dL Calcium 8.9 (8.4-10.2) mg/dL Total Bilirubin 0.30 (0.1-1.2) mg/dL AST 13 (5-40) units/L ALT 9 (7-56) units/L Alkaline Phosphatase 98 (35-129) units/L Total Protein 8.4 H (6.3-8.2) g/dL Albumin 3.8 L (3.9-5) g/dL Albumin/Globulin Ratio 0.8 % Lipase 10 L (13-60) units/L HCG, Qual Negative (Negative) Urine Color (Yellow) Urine Turbidity (Clear) Urine pH (5.0-7.0) Ur Specific Slater (1.003-1.030) Urine Protein (Negative) mg/dL Urine Glucose (UA) (Negative) mg/dL Urine Ketones (Negative) mg/dL Urine Blood (Negative) Urine Nitrite (Negative) Urine Bilirubin (Negative) Urine Ictotest (Negative) Urine Urobilinogen (<2.0) mg/dL Ur Leukocyte Esterase (Negative) Urine WBC (Auto) (0.0-6.0) /HPF Urine RBC (Auto) (0.0-6.0) /HPF U Epithel Cells (Auto) (0-13.0) /HPF Urine Bacteria (Auto) (Negative) /HPF Urine Mucus /HPF Urine Yeast (Budding) /HPF 03/11/21 Range/Units Unknown WBC (4.5-11.0) K/mm3 RBC (3.65-5.03) M/mm3 Hgb (10.1-14.3) gm/dl Hct (30.3-42.9) % MCV (79-97) fl MCH (28-32) pg MCHC (30-34) % RDW (13.2-15.2) % Plt Count (140-440) K/mm3 Add Manual Diff Total Counted Seg Neutrophils % Seg Neuts % (Manual) (40.0-70.0) % Lymphocytes % (Manual) (13.4-35.0) % Monocytes % (Manual) (0.0-7.3) % Nucleated RBC % Seg Neutrophils # Man (1.8-7.7) K/mm3 Band Neutrophils # K/mm3 Lymphocytes # (Manual) (1.2-5.4) K/mm3 Abs React Lymphs (Man) K/mm3 Monocytes # (Manual) (0.0-0.8) K/mm3 Eosinophils # (Manual) (0.0-0.4) K/mm3 Basophils # (Manual) (0.0-0.1) K/mm3 Metamyelocytes # K/mm3 Myelocytes # K/mm3 Promyelocytes # K/mm3 Blast Cells # K/mm3 WBC Morphology Hypersegmented Neuts Hyposegmented Neuts Hypogranular Neuts Smudge Cells Toxic Granulation Toxic Vacuolation Dohle Bodies Pelger-Huet Anomaly Cade Rods Platelet Estimate Clumped Platelets Plt Clumps, EDTA Large Platelets Giant Platelets Platelet Satelliting Plt Morphology Comment RBC Morphology Dimorphic RBCs Polychromasia Hypochromasia Poikilocytosis Anisocytosis Microcytosis Macrocytosis Spherocytes Pappenheimer Bodies Sickle Cells Target Cells Tear Drop Cells Ovalocytes Helmet Cells Raygoza-[place] Bodies [place] Rings [place] Cells Bite Cells Crenated Cell Elliptocytes Acanthocytes (Spur) Rouleaux Hemoglobin C Crystals Schistocytes Malaria parasites Sandoval Bodies Hem Pathologist Commnt Sodium (137-145) mmol/L Potassium (3.6-5.0) mmol/L Chloride (98-107) mmol/L Carbon Dioxide (22-30) mmol/L Anion Gap mmol/L BUN (7-17) mg/dL Creatinine (0.6-1.2) mg/dL Estimated GFR ml/min BUN/Creatinine Ratio % Glucose (65-100) mg/dL Calcium (8.4-10.2) mg/dL Total Bilirubin (0.1-1.2) mg/dL AST (5-40) units/L ALT (7-56) units/L Alkaline Phosphatase (35-129) units/L Total Protein (6.3-8.2) g/dL Albumin (3.9-5) g/dL Albumin/Globulin Ratio % Lipase (13-60) units/L HCG, Qual (Negative) Urine Color Mary (Yellow) Urine Turbidity Slightly-cloudy (Clear) Urine pH 6.0 (5.0-7.0) Ur Specific Slater 1.028 (1.003-1.030) Urine Protein 100 mg/dl (Negative) mg/dL Urine Glucose (UA) Neg (Negative) mg/dL Urine Ketones 80 (Negative) mg/dL Urine Blood Mod (Negative) Urine Nitrite Neg (Negative) Urine Bilirubin Sm (Negative) Urine Ictotest Negative (Negative) Urine Urobilinogen < 2.0 (<2.0) mg/dL Ur Leukocyte Esterase Lg (Negative) Urine WBC (Auto) 76.0 H (0.0-6.0) /HPF Urine RBC (Auto) 11.0 (0.0-6.0) /HPF U Epithel Cells (Auto) 5.0 (0-13.0) /HPF Urine Bacteria (Auto) 1+ (Negative) /HPF Urine Mucus 3+ /HPF Urine Yeast (Budding) 1+ /HPF Vital Signs 10/31/20 10/31/20 17:42 21:30 Temperature 98.3 F Pulse Rate 96 H 81 Respiratory 20 16 Rate Blood Pressure 126/78 Blood Pressure 106/54 [Left] O2 Sat by Pulse 98 99 Oximetry - Medical Decision Making Patient is a 30-year-old female presents emergency room complaints of nausea, vomiting, diarrhea that began 3 days ago. She states that she had [employer] food and later that night began feeling sick and having vomiting and diarrhea. She states that yesterday she began having right flank pain and urinary symptoms such as dysuria and dark urine and odor to the urine. She denies any hematochezia, melena, hematemesis, abnormal vaginal discharge. Patient states that she saw her primary care doctor yesterday and states that her dose of Protonix was increased and she was started on ciprofloxacin and Flagyl. She states that she has not given anything for her nausea or vomiting. She has a past medical history of GERD. Allergy to strawberry and tetracyclines. She has an IUD for control. Vitals are stable. On exam patient has right CVA tenderness, no abdominal tenderness palpation, no guarding, no rebound, no rigidity, normal bowel sounds, no peritoneal signs. Labs with mildly elevated white blood cell count of 14,000. UA shows evidence of UTI. Symptoms likely related to UTI with possible early pyelonephritis. Patient is afebrile, no tachycardia, she is able to tolerate p.o. intake, patient given trial of outpatient antibiotics. Discussed strict return precautions and the importance of follow-up. Patient was able to tolerate p.o. intake while in the ED. Symptoms improved upon medication administration. Patient given prescription for Pyridium, Phenergan, Toradol. Patient was already prescribed ciprofloxacin by her primary care doctor for a week, advised to complete antibiotics, she just started her first dose yesterday. Advised patient Please take medication as pre scribed. Increase your water intake. Please take your antibiotics all the way to completion as prescribed by your primary care doctor. Please follow-up with your primary care doctor and have them retest your urine for clearance of bacteria. Please eat a bland liquid diet and slowly advance your diet as tolerated. Return to emergency room for any new or worsening symptoms. Critical care attestation.: If time is entered above; I have spent that time in minutes in the direct care of this critically ill patient, excluding procedure time. ED Disposition Clinical Impression: Nausea vomiting and diarrhea, Right flank pain UTI (urinary tract infection) Qualifiers: Urinary tract infection type: acute cystitis Hematuria presence: without hematuria Qualified Code(s): N30.00 - Acute cystitis without hematuria Disposition: TO HOME OR SELFCARE Is pt being admited?: No Does the pt Need Aspirin: No Condition: Stable Instructions: Urinary Tract Infection, Adult, [id number], Viral Gastroenter itis, , Abdominal Pain (ED) Additional Instructions: Please take medication as prescribed. Increase your water intake. Please take your antibiotics all the way to completion as prescribed by your primary care doctor. Please follow-up with your primary care doctor and have them retest your urine for clearance of bacteria. Please eat a bland liquid diet and slowly advance your diet as tolerated. Return to emergency room for any new or worsening symptoms. Prescriptions: Promethazine [Phenergan] 25 mg PO Q8HR PRN #12 tab PRN Reason: nausea vomiting Phenazopyridine [Pyridium] 100 mg PO TID #9 tab Ketorolac [Toradol] 10 mg PO Q6H PRN #10 tablet PRN Reason: Pain Referrals: PRIMARY CARE, [Primary Care Provider] - 2-3 Days Time of Disposition: 21:50 Print Language: LAO
[2020-10-31 21:31] VITALS: BP 106/54
[2020-10-31] MEDS ORDERED: HYDROcodone/ACETAMINOPHEN 5-325 MG TAB PO ONE (21:55)
[2020-10-31] MEDS ORDERED: ONDANSETRON 4 MG ODT TAB PO ONE (22:01)
== END 2020-10-31 22:20 | disposition home or self-care (01) ==
LOC: ED 17:14
DX: N39.0 Urinary tract infection, site not specified (principal); R11.2 Nausea with vomiting, unspecified; R19.7 Diarrhea, unspecified; R10.9 Unspecified abdominal pain; R30.0 Dysuria; K21.9 Gastro-esophageal reflux disease without esophagitis; F17.200 Nicotine dependence, unspecified, uncomplicated; Z98.890 Other specified postprocedural states; Z79.1 Long term (current) use of non-steroidal anti-inflammatories (NSAID); Z79.899 Other long term (current) drug therapy; Z91.018 Allergy to other foods; Z88.8 Allergy status to other drugs, medicaments and biological substances
CPT/HCPCS: 36415; 80053; 81001; 83690; 84703; 85007; 85025; 87086; 96365; 96375; 99283; J0696; J1885; J2405; J7030; Q0162